=== PATIENT | female | born 1995 | race Caucasian/White ===

== ENCOUNTER 2019-03-21 19:54 | Emergency (ER) | payer SELFPAY ==
[2019-03-21 19:56] VITALS: BP 114/64; PULSE 90; RESP 16; TEMP 36.7; O2SAT 100; BMI 22.9
--- NOTE | 2019-03-21 20:08 | ED.DCSUM_ITS ---
History of Present Illness Chief Complaint: Ear Problem Informant: Patient Onset: Today Context: Gradual Onset Timing: Continuous Current Severity: Moderate Maximum Severity: Moderate Narrative: Patient presents to the emergency department with right ear pain. She states she feels like it is clogged. She states that she try to put hydrogen peroxide and it made the pain worse. She does have history of seasonal allergies. She denies any fevers or chills. She does describe fullness and change in hearing. She denies any recent trauma. She is otherwise been in her normal state of health. Prior similar symptoms: No Recent Illness/Hospitalization: No Past Medical History - Allergies and Home Meds Allergies/Adverse Reactions: Allergies amoxicillin Allergy (Verified 03/21/19 19:57) Hives Primary Care Physician: NOT,DEFINED [Primary Care Provider] - Prior records reviewed: Yes Past Medical History: None Surgical History: no surgical history Smoking Status: Former smoker - Quit 02/2015 Review of Systems General: Denies: Chills, Fever, Sweats Eyes: Denies: Visual changes - bilaterally, Diplopia ENT: Reports: Right ear pain. Denies: Rhinorrhea, Sore throat Cardiovascular: Denies: Chest pain, Palpitations Respiratory: Denies: Dyspnea, Cough, Dyspnea on exertion Gastrointestinal: Denies: Abdominal pain, Nausea, Vomiting, Diarrhea, Melena, Hematochezia Genitourinary: Denies: Dysuria, Hematuria, Frequency Musculoskeletal: Denies: Back pain, Extremity Pain Skin: Denies: Rash, Wounds Neurological: Denies: Headache, Weakness, Numbness Physical Exam Vital Signs/Narrative: Vital Signs Temp Pulse Resp BP Pulse Ox 03/21/19 19:56 98.0 F 90 16 114/64 100 Inital Vital Signs reviewed: Yes General: Well nourished, Well developed, No Acute Distress Head: Normocephalic, Atraumatic Eyes: Perrl, EOMI ENT: Moist mucous membranes, No rhinorrhea, - - The right TM is erythematous and bulging. There is distortion of landmarks. There is purulent behind it. There is no perforation. Neck: Supple, Nontender Cardiovascular: Regular rate, Regular rhythm, No murmurs Respiratory: No distress, CTA bilaterally, Chest nontender Abdomen: Soft, Nontender, Nondistended, Normal bowel sounds Back: Nontender, Normal Inspection Extremities: Nontender, No edema Skin: Normal color, No rash Neurological: Alert, Oriented x3, Cranial nerves II-XII grossly intact, Normal Strength, Normal Sensation Psychological: Normal affect, Normal Mood Diagnostic/Tx/Re-eval - Medical Decision Making The patient has evidence of an acute otitis media. There is no mastoid tenderness. There is no perforation. Given her history of seasonal allergies, she will be given a short prednisone burst. She will also be started on Omnicef. She is given her first dose here. She was counseled on concerning s ymptoms and reasons to return. She will be discharged home. Impression 1. Acute right otitis media without perforation ED Disposition - Plan for ED Patient: Instructions: OTITIS MEDIA, Abx Tx (Adult) Prescriptions: Prednisone [Deltasone] 40 mg PO DAILY #10 tab Prescription Printed Cefdinir [Omnicef [equiv]] 300 mg PO Q12H #14 cap Prescription Printed Referrals: NOT,DEFINED [Primary Care Provider] -
[2019-03-21] MEDS: predniSONE 20 MG Tablet 60 MG PO (20:15)
[2019-03-21] MEDS: Cefdinir 300 MG Capsule PO (20:35)
== END 2019-03-21 20:38 | disposition home or self-care (01) ==
LOC: ED 20:27
PROVIDERS: Emergency Provider Emergency Medicine; Family Provider Nurse Practitioner Family; PCP Nurse Practitioner Family
DX: H66.91 Otitis media, unspecified, right ear (principal); Z88.0 Allergy status to penicillin; Z87.891 Personal history of nicotine dependence; Z79.899 Other long term (current) drug therapy
CPT/HCPCS: 99283

== ENCOUNTER 2025-06-24 23:05 | Outpatient (CLI) | payer MEDICAID, SELFPAY ==
--- OUTSIDE RECORDS SUMMARY | 2025-06-24 23:15 | XMS RPT_ITS | CCD ---
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.Arnaldo SERNA Primary Care Provider CARIDAD GLYNN Attending Unavailable TRILL, ARNALDO C Primary Care Unavailable CARIDAD GLYNN Attending Unavailable TRIKRIS, ARNALDO C Primary Care Unavailable HAURY, ERIKA Attending Unavailable SELF Referring Unavailable TRILL, ARNALDO C Primary Care Unavailable HARAUL, ERIKA Referring Unavailable TRILL, ARNALDO C Primary Care Unavailable HAURY, ERIKA Referring Unavailable TRILL, ARNALDO C Primary Care Unavailable PLOTTS, CARIDAD Attending Unavailable HAURY, ERIKA Referring Unavailable TRILL, ARNALDO C Primary Care Unavailable CHIP FRENCH Attending Unavailable SELF Referring Unavailable TRILL, ARNALDO C Primary Care Unavailable PLOTTS, CARIDAD Attending Unavailable TRILL, ARNALDO C Primary Care Unavailable CHIP FRENCH Referring Unavailable TRILL, ARNALDO C Primary Care Unavailable TRILL, ARNALDO C Primary Care Unavailable CHIP FRENCH Attending Unavailable GABRIELE, CARIDAD Attending Unavailable TRILL, ARNALDO C Primary Care Unavailable Allergies Allergy Classification Reported Allergen(s) Allergy Type Date of Onset Reaction(s) Facility (10 sources) amoxicillin; Translations: [AMOXICILLIN] Drug Allergy 03-23-2011 Rash, Hives [facility] Other [place] [facility] Medications Current Medications Medication Drug Class(es) Dates Sig (Normalized) Sig (Original) ondansetron 4 mg oral tablet (8 sources) Serotonin-3 Receptor Antagonist Start: 01-19-2025 take 1 tablet by mouth every eight hours as needed for nausea ondansetron (ZOFRAN) 4 mg tablet Indications: Encounter for supervision of high risk in second trimester, antepartum (HCC) , Nausea and vomiting during (HCC) Take 1 tablet by mouth every 8 hours as needed for nausea/vomiting. 30 tablet 3 01/19/2025 Active pantoprazole 20 mg delayed release oral tablet (4 sources) Proton Pump Inhibitor Start: 02-11-2025 take 1 tablet by mouth once daily pantoprazole DR (PROTONIX) 20 mg tablet Take 1 tablet by mouth once daily. 30 tablet 1 02/11/2025 Active vit/iron fum/folic ac ( 1 + 1 ORAL) (8 sources) vit/iro n fum/folic ac ( 1 + 1 ORAL) Take by mouth. Active Completed/Discontinued Medications Medication Drug Class(es) Dates Sig (Normalized) Sig (Original) 21 day ethinyl estradiol 0.465494 mg/hr / etonogestrel 0.005 mg/hr vaginal system (1 source) Progestin, Estrogen Start: 09-01-2020 End: 01-19-2025 Etonogestrel-Ethin yl Estradiol (NUVARING) 0.12-0.015 mg/24 hr vaginal ring 1 Each as directed. INSERT ONE(1) RING VAGINALLY AND LEAVE IN PLACE FOR THREE WEEKS, THEN REMOVE FOR 1 WEEK. 3 Each 3 09/01/2020 01/19/2025 Discontinued famotidine 20 mg oral tablet (5 sources) Histamine-2 Receptor Antagonist Start: 01-19-2025 End: 02-11-2025 take 1 tablet by mouth twice daily famotidine (PEPCID) 20 mg tablet Indications: Encounter for supervision of high risk in second trimester, antepartum (HCC) Take 1 tablet by mouth two times a day. 60 tablet 5 01/19/2025 02/11/2025 Discontinued fluticasone propionate 0.05 mg/actuat metered dose nasal spray (1 source) Corticosteroid Start: 03-29-2021 End: 01-19-2025 take 1 spray(s) nasal route once daily fluticasone (FLONASE) 50 mcg/actuation nasal spray Indications: Environmental allergies Use 1 [place] in each nostril once daily. 1 Each 2 03/29/2021 01/19/2025 Discontinued meclizine hydrochloride 25 mg oral tablet (1 source) Antiemetic Start: 07-14-2020 End: 01-19-2025 take 1 tablet by mouth three times daily meclizine (ANTIVERT) 25 mg tab Indications: Intractable vomiting with nausea, unspecified vomiting type Take 1 tablet by mouth three times daily. 90 tablet 6 07/14/2020 01/19/2025 Discontinued melatonin 5 mg oral tablet (1 source) Start: 09-08-2020 End: 01-19-2025 melatonin 5 mg tablet 09/08/2020 01/19/2025 Discontinued OTC PRODUCT (1 source) End: 01-19-2025 OTC PRODUCT oral 01/19/2025 Discontinued Problems Active Problems Problem Classification Problem Date Documented Da te Episodic/Chronic Anxiety disorders (19 sources) Mixed anxiety and depressive disorder; Translations: [Other specified anxiety disorders] Onset: 04-18-2016 01-19-2025 Chronic Attention-deficit, conduct, and disruptive behavior disorders (9 sources) Attention deficit hyperactivity disorder; Translations: [Attention-deficit hyperactivity disorder, unspecified type] Onset: 01-19-2025 01-19-2025 Chronic Cancer of cervix (8 sources) Atypical squamous cells of undetermined significance on cervical Papanicolaou smear; Translations: [Atypical squamous cells of undetermined significance on cytologic smear of cervix (ASC-US)] Onset: 01-23-2025 01-23-2025 Episodic Conduction disorders (12 sources) Incomplete right bundle branch block; Translations: [Unspecified right bundle-branch block] Onset: 09-07-2016 01-19-2025 Chronic Diverticulosis and diverticulitis (8 sources) Diverticulosis of small intestine; Translations: [Diverticulosis of small intestine without perforation or abscess without bleeding] Onset: 06-21-2018 06-21-2018 Chronic Immunizations and screening for infectious disease (5 sources) Patient encounter status; Translations: [Encounter for screening for infections with a predominantly sexual mode of transmission] Onset: 01-19-2025 01-19-2025 Episodic Mood disorders (16 sources) Moderate recurrent major depression; Translations: [Major depressive disorder, recurrent, moderate] Onset: 04-18-2016 Resolved: 11-22-2016 07-14-2020 Chronic Other complications of (20 sources) High risk ; Translations: [Supervision of high risk , unspecified, second trimester] Onset: 09-25-2016 Resolved: 08-21-2017 01-19-2025 Episodic Other complications of (9 sources) Vomiting of , unspecified; Translations: [Unspecified vomiting of , unspecified as to episode of care or not applicable] Onset: 01-19-2025 01-19-2025 Episodic Other complications of (10 sources) Heartburn; Translations: [Other specified related conditions, second trimester] Onset: 01-19-2025 01-19-2025 Episodic Other complications of (9 sources) Maternal tobacco use; Translations: [Smoking (tobacco) complicating , second trimester] Onset: 01-19-2025 01-19-2025 Episodic Other complications of (9 sources) Late entry into care; Translations: [Supervision of with insufficient care, unspecified trimester] Onset: 01-19-2025 01-19-2025 Episodic Other complications of (9 sources) Rubella non-immune; Translations: [Supervision of other high risk pregnancies, unspecified trimester] Onset: 01-20-2025 01-20-2025 Episodic Other complications of (1 source) Other specified related conditions, third trimester; Translations: [Vaginal discharge during in third trimester (HCC)] Onset: 04-15-2025 Episodic Other disorders of stomach and duodenum (11 sources) Gastroparesis syndrome; Translations: [Gastroparesis] Onset: 01-19-2025 01-19-2025 Episodic Other female genital disorders (1 source) Other specified noninflammatory disorders of vagina; Translations: [Vaginal discharge during in third trimester (HCC)] Onset: 04-15-2025 Episodic Other gastrointestinal disorders (8 sources) Irritable bowel syndrome; Translations: [Irritable bowel syndrome without diarrhea] Onset: 08-21-2017 08-21-2017 Chronic Other lower respiratory disease (10 sources) Dyspnea; Translations: [Shortness of breath] Onset: 01-19-2025 01-19-2025 Episodic Other non-traumatic joint disorders (1 source) Pain in left hip; Translations: [Pain in left hip] Onset: 03-11-2018 Episodic Other screening for suspected conditions (not mental disorders or infectious disease) (1 source) Cancer cervix screening status; Translations: [Encounter for screening for malignant neoplasm of cervix] 01-19-2025 Episodic Residual codes; unclassified (1 source) Gestation period, 17 weeks; Translations: [17 weeks gestation of ] 01-19-2025 Episodic Residual codes; unclassified (10 sources) History of headache; Translations: [Personal history of other specified conditions] Onset: 01-19-2025 01-19-2025 Episodic Residual codes; unclassified (2 sources) Gestation period, 20 weeks; Translations: [20 weeks gestation of ] 02-11-2025 Episodic Residual codes; unclassified (2 sources) Gestation period, 24 weeks; Translations: [24 weeks gestation of ] 03-11-2025 Episodic Residual codes; unclassified (1 source) 34 weeks gestation of ; Translations: [34 weeks gestation of (HCC)] Onset: 05-20-2025 Episodic Residual codes; unclassified (1 source) 32 weeks gestation of ; Translations: [32 weeks gestation of (HCC)] Onset: 05-08-2025 Episodic Residual codes; unclassified (1 source) 29 weeks gestation of ; Translations: [29 weeks gestation of (HCC)] Onset: 04-15-2025 Episodic Residual codes; unclassified (1 source) 28 weeks gestation of ; Translations: [28 weeks gestation of (HCC)] Onset: 04-09-2025 Episodic Residual codes; unclassified (1 source) 24 weeks gestation of ; Translations: [24 weeks gestation of (HCC)] Onset: 03-11-2025 Episodic Unclassified (8 sources) [facility] Education - COMMON Onset: 01-19-2025 01-19-2025 Unclassified (8 sources) Education - [place] Onset: 01-19-2025 01-19-2025 Unclassified (1 source) Rubella non-immune status, antepartum ([facility]); Translations: [Rubella non-immune status, antepartum ([facility])] Onset: 01-21-2025 Unclassified (1 source) Care Onset: 04-22-2025 Past or Other Problems Problem Classification Problem Date Documented Da te Episodic/Chronic Abdominal pain (16 sources) Right lower quadrant pain; Translations: [Right lower quadrant pain] Onset: 03-07-2016 Resolved: 11-22-2016 11-22-2016 Episodic Cardiac and circulatory congenital anomalies (8 sources) Single umbilical artery; Translations: [Congenital absence and hypoplasia of umbilical artery] Onset: 02-27-2017 Resolved: 08-21-2017 08-21-2017 Chronic Nausea and vomiting (8 sources) Nausea and vomiting; Translations: [Nausea with vomiting, unspecified] Onset: 03-07-2016 Resolved: 11-22-2016 11-22-2016 Episodic Other complications of (1 source) Smoking (tobacco) complicating , second trimester; Translations: [Tobacco smoking complicating in second trimester ([facility])] Onset: 01-19-2025 Episodic Other complications of (1 source) Supervision of high risk , unspecified, third trimester; Translations: [Encounter for supervision of high risk in third trimester, antepartum ([facility])] Onset: 01-19-2025 Episodic Other complications of (1 source) Supervision of other high risk pregnancies, unspecified trimester; Translations: [Rubella non-immune status, antepartum ([facility])] Onset: 01-21-2025 Episodic Other complications of (1 source) Other specified related conditions, second trimester; Translations: [Heartburn during in second trimester ([facility])] Onset: 01-19-2025 Episodic Other complications of (1 source) Supervision of high risk , unspecified, second trimester; Translations: [Encounter for supervision of high risk in second trimester, antepartum ([facility])] Onset: 01-19-2025 Episodic Other connective tissue disease (8 sources) Abnormal posture; Translations: [Abnormal posture] Onset: 12-07-2017 12-07-2017 Episodic Other disorders of stomach and duodenum (1 source) Gastroparesis; Translations: [Gastroparesis] Onset: 01-19-2025 Episodic Other gastrointestinal disorders (8 sources) Diarrhea; Translations: [Diarrhea, unspecified] Onset: 03-07-2016 Resolved: 11-22-2016 11-22-2016 Episodic Other gastrointestinal disorders (1 source) Heartburn; Translations: [Heartburn during in second trimester ([facility])] Onset: 01-19-2025 Episodic Other lower respiratory disease (1 source) Shortness of breath; Translations: [Shortness of breath] Onset: 01-19-2025 Episodic Other and delivery including normal (2 sources) Encounter for supervision of normal , unspecified, unspecified trimester; Translations: [Encounter for supervision of normal , unspecified, first trimester] Onset: 01-19-2025 Episodic Residual codes; unclassified (8 sources) FH: Congenital heart disease; Translations: [Family history of other congenital malformations, deformations and chromosomal abnormalities] Onset: 09-07-2016 Resolved: 08-21-2017 08-21-2017 Episodic Residual codes; unclassified (1 source) Personal history of other specified conditions; Translations: [History of headache] Onset: 01-19-2025 Episodic Residual codes; unclassified (1 source) 20 weeks gestation of ; Translations: [20 weeks gestation of (HCC)] Onset: 02-11-2025 Episodic Screening and history of mental health and substance abuse codes (8 sources) H/O: depression; Translations: [Personal history of other mental and behavioral disorders] Onset: 09-07-2016 09-07-2016 Episodic Spondylosis; intervertebral disc disorders; other back problems (16 sources) Chronic low back pain; Translations: [Lumbago with sciatica, left side] Onset: 12-07-2017 12-07-2017 Episodic Results Test Name Value Interpretation Reference Range Facil guillerminachanel Franc 04-23-2025 [facility] Telephone ([id number]) SOL LEARY ([id number]) 1995 F Date Time Provider Department 04/23/25 RUTH SHOOK [id number] During your visit today, we recorded the following information about you: Ruth Shook RN 04/23/2025 9:08 AM Signed 3rd risk assessment form submitted 04/23/2025. 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 - vit/iron fum/folic ac ( 1 + 1 ORAL) Take by mouth. - ondansetron (ZOFRAN) 4 mg tablet Take 1 tablet by mouth every 8 hours as needed for nausea/vomiting. Problem List As Of Date 04/23/2025 Noted Resolved Right lower quadrant abdominal pain [R10.31] 03/07/2016 11/22/2016 Nausea and vomiting [R11.2] 03/07/2016 11/22/2016 Diarrhea [R19.7] 03/07/2016 11/22/2016 Lower abdominal pain [R10.30] 03/07/2016 11/22/2016 Anxiety [F41.9] 04/18/2016 Depression [F32.A] 04/18/2016 11/22/2016 History of depression [Z86.59] 09/07/2016 Incomplete right bundle branch block [I45.10] 09/07/2016 Family history of congenital heart defect [Z82.*09/07/2016 08/21/2017 Patient requested diagnostic testing [Z01.89] 09/07/2016 11/22/2016 Supervision of high risk in third tri*09/25/2016 08/21/2017 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] 02/27/2017 08/21/2017 IBS (irritable bowel syndrome) [K58.9] 08/21/2017 Chronic bilateral low back pain with bilateral *12/07/2017 Posture abnormality [R29.3] 12/07/2017 Lumbosacral spine instability [M53.2X7] 12/07/2017 Diverticulosis of small intestine without perfo*06/21/2018 Moderate episode of recurrent major depressive *07/14/2020 Shortness of breath [R06.02] 01/19/2025 Tobacco smoking complicating in secon*01/19/2025 Nausea and vomiting during (HCC) [O21*01/19/2025 Depression with anxiety [F41.8] 01/19/2025 Heartburn during in second trimester *01/19/2025 History of headache [Z87.898] 01/19/2025 Gastroparesis [K31.84] 01/19/2025 Attention deficit hyperactivity disorder (ADHD)*01/19/2025 Late care (HCC) [O09.30] 01/19/2025 Rubella non-immune status, antepartum (HCC) [Z3*01/20/2025 Atypical squamous cells of undetermined signifi*01/23/2025 Encounter Status:Closed by RUTH SHOOK on 04/23/25 Normal [facility] BACTERIAL VAGINOSIS NAATon 1 Lactobacillus crispatus+gasseri+je nsenii + Gardnerella vaginalis + Atopobium vaginae rRNA KIMBERLYN+probe Ql (Vag fld) Not detected Normal Not detected [facility] Comment on above: Order Comment: Speci men Type: BLOOD SPECIMEN Ordering Facility: [facility] Address: [address] [place] [address] Performed By: #### L [id number] #### [facility] CLIA [id number] [address] [place] [address] [place] JUDSON/TRICHOMONAS NAATon 1 C. glabrata RNA KIMBERLYN+probe Ql (Vag fld) Not detected Normal Not detected [facility] Comment on above: Order Comment: Speci men Type: BLOOD SPECIMEN Ordering Facility: [facility] Address: [address] [place] [address] Performed By: #### L [id number] #### [facility] CLIA [id number] [address] [place] [address] [place] Judson sp DNA KIMBERLYN+probe Ql (Vag fld) Not detected Normal Not detected [facility] Comment on above: Order Comment: Speci men Type: BLOOD SPECIMEN Ordering Facility: [facility] Address: [address] [place] [address] Result Comment: The Judson species group target includes C. albicans, C. tropicalis, C. parapsilosis, and C. dubliniensis. Performed By: #### L [id number] #### [facility] CLIA [id number] [address] [place] [address] [place] T. vaginalis DNA KIMBERLYN+probe Ql (Unsp spec) Not detected Normal Not detected [facility] Comment on above: Order Comment: Speci men Type: BLOOD SPECIMEN Ordering Facility: [facility] Address: [address] [place] [address] Performed By: #### L [id number] #### [facility] CLIA [id number] [address] [place] [address] [place] CBC panel Auto (Bld)on 04-09 Erythrocyte distribution width (RBC) [Ratio] 12.2 % Normal 11.5-15.0 [facility] Comment on above: Order Comment: Speci men Type: BLOOD SPECIMEN Ordering Facility: [facility] Address: [address] [place] [address] Performed By: #### L [id number] #### [facility] CLIA [id number] [address] [place] [address] [place] Hematocrit (Bld) [Volume fraction] 31.6 % Low 36.0-46.0 [facility] Comment on above: Order Comment: Speci men Type: BLOOD SPECIMEN Ordering Facility: [facility] Address: [address] [place] [address] Performed By: #### L [id number] #### [facility] CLIA [id number] [address] [place] [address] [place] Hemoglobin (Bld) [Mass/Vol] 11.1 g/dL Low 11.5-15.5 [facility] Comment on above: Order Comment: Speci men Type: BLOOD SPECIMEN Ordering Facility: [facility] Address: [address] [place] [address] Performed By: #### L [id number] #### [facility] CLIA [id number] [address] [place] [address] [place] MCH (RBC) [Entitic mass] 32.6 pg Normal 26.0-34.0 [facility] Comment on above: Order Comment: Speci men Type: BLOOD SPECIMEN Ordering Facility: [facility] Address: [address] [place] [address] Performed By: #### L [id number] #### [facility] CLIA [id number] [address] [place] [address] [place] MCHC (RBC) [Mass/Vol] 35.1 g/dL Normal 30.5-36.0 [facility] Comment on above: Order Comment: Speci men Type: BLOOD SPECIMEN Ordering Facility: [facility] Address: [address] [place] [address] Performed By: #### L [id number] #### [facility] CLIA [id number] [address] [place] [address] [place] MCV (RBC) [Entitic vol] 92.7 fL Normal 80.0-100.0 [facility] Comment on above: Order Comment: Speci men Type: BLOOD SPECIMEN Ordering Facility: [facility] Address: [address] [place] [address] Performed By: #### L [id number] #### [facility] CLIA [id number] [address] [place] [address] [place] Nucleated RBC (Bld) [#/Vol] 10*3/uL Normal <0.01 [facility] Comment on above: Order Comment: Speci men Type: BLOOD SPECIMEN Ordering Facility: [facility] Address: [address] [place] [address] Performed By: #### L [id number] #### [facility] CLIA [id number] [address] [place] [address] [place] Platelet mean volume (Bld) [Entitic vol] 9.0 fL Normal 9.0-12.7 [facility] Comment on above: Order Comment: Speci men Type: BLOOD SPECIMEN Ordering Facility: [facility] Address: [address] [place] [address] Performed By: #### L [id number] #### [facility] CLIA [id number] [address] [place] [address] [place] [facility] [place] Platelets (Bld) [#/Vol] 271 10*3/uL Normal 150-400 [facility] Comment on above: Order Comment: Speci men Type: BLOOD SPECIMEN Ordering Facility: [facility] Address: [address] [place] [address] Performed By: #### L [id number] #### [facility] CLIA [id number] [address] [place] [address] [place] RBC (Bld) [#/Vol] 3.41 10*6/uL Low 3.90-5.20 [facility] Comment on above: Order Comment: Speci men Type: BLOOD SPECIMEN Ordering Facility: [facility] Address: [address] [place] [address] Performed By: #### L [id number] #### [facility] CLIA [id number] [address] [place] [address] [place] WBC (Bld) [#/Vol] 9.30 10*3/uL Normal 3.70-11.00 [facility] Comment on above: Order Comment: Speci men Type: BLOOD SPECIMEN Ordering Facility: [facility] Address: [address] [place] [address] Performed By: #### L [id number] #### [facility] CLIA [id number] [address] [place] [address] [place] [id number] 04-09-2025 ECG01 Ventricular Rate : 8 6 BPM Atrial Rate : 86 BPM P-R Interval : 142 ms QRS Duration : 106 ms Q-T Interval : 376 ms QTC Calculation(Bazett) : 449 ms Calculated P [place] : 44 degrees Calculated R [place] : 49 degrees Calculated T [place] : 39 degrees NORMAL SINUS RHYTHM INCOMPLETE RIGHT BUNDLE BRANCH BLOCK BORDERLINE ECG Confirmed by MD MESFIN, QARAB ([id number]) on 04/13/2025 1:03:56 PM NAME : SOL LEARY PID : [id number] : 1995 Gender : Female Race : ORD : Procedure Date : Apr 09 2025 11:42:46 Edit Date : Apr 13 2025 13:07:35 Diagnosis: NORMAL SINUS RHYTHM INCOMPLETE RIGHT BUNDLE BRANCH BLOCK BORDERLINE ECG Confirmed by MD TOURE QARAB ([id number]) on 04/13/2025 1:03:56 PM Test Reason : Location : 636 : [facility] Overread By : MD TOURE QARAB Edited By : MD TOURE QARAB Referred By : CHIP FRENCH Acquired by : Carlos werner [facility] GESTATIONAL GLUCOSE SCREEN, 1-HOUR, 50 GRAM, NON-FASTINGon 04-09-2025 Glucose [Mass/Vol] 74 mg/dL Normal 74-134 [facility] Comment on above: Order Comment: Oleg pritchett Type: BLOOD SPECIMEN Ordering Facility: [facility] Address: [address] [place] [address] Result Comment: [facility] Congress of [employer]stetricians and [employer]nec[employer] (Sen/Osito) guidelines state a gestational diabetes mellitus positive screen is made, in women not previously diagnosed with overt diabetes, when the 1 hr plasma glucose level is equal to or above 140 mg/dL. [facility] Manager Of Development and Women's Health [place] recommends a 135 mg/dL cutoff. Performed By: #### 5 [id number] #### [facility] CLIA [id number] [address] [place] [address] [place] Reagin and Treponema pallidu m IgG and IgM [Interp]on 04-09-2025 T. pallidum IgG+IgM IA Ql (S) Non-Reactive Normal Nonreactive [facility] Comment on above: Order Comment: Oleg pritcehtt Type: BLOOD SPECIMEN Ordering Facility: [facility] Address: [address] [place] [address] Performed By: #### 7 [id number] #### [facility] CLIA [id number] [address] [place] [address] [place] Reagin+T pallidum IgG+IgM Se rPl-Impon 04-09-2025 Reagin and Treponema pallidum IgG and IgM [Interp] Cannot exclude recent Treponemal infection if specimen collected within 7-10 days after appearance of suspect lesions or 2-3 weeks after an exposure. Clinical correlation is required. [facility] Comment on above: Order Comment: Speci men Type: BLOOD SPECIMEN Ordering Facility: [facility] Address: [address] [place] [address] Performed By: #### 7 3752-8 #### [facility] CLIA [id number] [address] [place] [address] 03-12-2025 CNPN Telephone ([id number]) SOL LEARY ([id number]) 1995 F Date Time Provider Department 03/12/25 RUTH SHOOK [id number] During your visit today, we recorded the following information about you: Ruth Shook RN 03/12/2025 9:58 AM Signed 2nd risk assessment form submitted 03/12/2025. 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 - vit/iron fum/folic ac ( 1 + 1 ORAL) Take by mouth. - ondansetron (ZOFRAN) 4 mg tablet Take 1 tablet by mouth every 8 hours as needed for nausea/vomiting. Problem List As Of Date 03/12/2025 Noted Resolved Right lower quadrant abdominal pain [R10.31] 03/07/2016 11/22/2016 Nausea and vomiting [R11.2] 03/07/2016 11/22/2016 Diarrhea [R19.7] 03/07/2016 11/22/2016 Lower abdominal pain [R10.30] 03/07/2016 11/22/2016 Anxiety [F41.9] 04/18/2016 Depression [F32.A] 04/18/2016 11/22/2016 History of depression [Z86.59] 09/07/2016 Incomplete right bundle branch block [I45.10] 09/07/2016 Family history of congenital heart defect [Z82.*09/07/2016 08/21/2017 Patient requested diagnostic testing [Z01.89] 09/07/2016 11/22/2016 Supervision of high risk in third tri*09/25/2016 08/21/2017 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] 02/27/2017 08/21/2017 IBS (irritable bowel syndrome) [K58.9] 08/21/2017 Chronic bilateral low back pain with bilateral *12/07/2017 Posture abnormality [R29.3] 12/07/2017 Lumbosacral spine instability [M53.2X7] 12/07/2017 Diverticulosis of small intestine without perfo*06/21/2018 Moderate episode of recurrent major depressive *07/14/2020 Shortness of breath [R06.02] 01/19/2025 Tobacco smoking complicating in secon*01/19/2025 Encounter for supervision of high risk pregnanc*01/19/2025 Nausea and vomiting during (HCC) [O21*01/19/2025 Depression with anxiety [F41.8] 01/19/2025 Heartburn during in second trimester *01/19/2025 History of headache [Z87.898] 01/19/2025 Gastroparesis [K31.84] 01/19/2025 Attention deficit hyperactivity disorder (ADHD)*01/19/2025 Late care (HCC) [O09.30] 01/19/2025 Rubella non-immune status, antepartum (HCC) [O0*01/20/2025 Atypical squamous cells of undetermined signifi*01/23/2025 Encounter Status:Closed by RUTH SHOOK on 03/12/[address] [facility] 02-12-2025 CNPN Telephone (OBGYWM) SOL LEARY ([id number]) 1995 F Date Time Provider Department 02/12/25 ERIKA LUCAS During your visit today, we recorded the following information about you: Ce oDan RN 02/12/2025 11:43 AM Signed Erika Lucas APRN.KAREEM to [facility] Ob-Chemical Checker Pool 02/12/25 8:47 AM Please cancel colpo and plan for repeat pap Erika Lucas APRN.Candelaria Fraser MD to Erika Lucas APRN.NITRATOR OPERATOR 02/12/25 8:36 AM I filled it out in [facility] manuel and for HPV negative ASCUS with ASCUS history it says 1 year follow up. So I would say pap and HPV Erika Lucas APRN.NITRATOR OPERATOR to Candelaria Goss MD 02/11/25 11:56 AM Has upcoming colpo with you. ASCUS x2, HPV negative, but LSIL 2016. Should we cancel colpo and plan for repeat pap ? Erika Lucas APRN.Ce Petit RN 02/12/2025 11:43 AM Signed Left message for patient to call office. KATIE Jenkins Annalee, LPN 02/12/2025 12:32 PM Signed Patient notified Allergies As of Date: 02/12/2025 Noted Allergy Reaction AMOXICILLIN 03/23/2011 2 - Rash 4 - Hives Date Reviewed: 02/11/2025 Reviewed by: Amara Perea MA - Fully Assessed Reason for Visit: Appointment [186] Prescriptions as of 02/12/2025 - pantoprazole DR (PROTONIX) 20 mg tablet Take 1 tablet by mouth once daily. - vit/iron fum/folic ac ( 1 + 1 ORAL) Take by mouth. - ondansetron (ZOFRAN) 4 mg tablet Take 1 tablet by mouth every 8 hours as needed for nausea/vomiting. Problem List As Of Date 02/12/2025 Noted Resolved Right lower quadrant abdominal pain [R10.31] 03/07/2016 11/22/2016 Nausea and vomiting [R11.2] 03/07/2016 11/22/2016 Diarrhea [R19.7] 03/07/2016 11/22/2016 Lower abdominal pain [R10.30] 03/07/2016 11/22/2016 Anxiety [F41.9] 04/18/2016 Depression [F32.A] 04/18/2016 11/22/2016 History of depression [Z86.59] 09/07/2016 Incomplete right bundle branch block [I45.10] 09/07/2016 Family history of congenital heart defect [Z82.*09/07/2016 08/21/2017 Patient requested diagnostic testing [Z01.89] 09/07/2016 11/22/2016 Supervision of high risk in third tri*09/25/2016 08/21/2017 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] 02/27/2017 08/21/2017 IBS (irritable bowel syndrome) [K58.9] 08/21/2017 Chronic bilateral low back pain with bilateral *12/07/2017 Posture abnormality [R29.3] 12/07/2017 Lumbosacral spine instability [M53.2X7] 12/07/2017 Diverticulosis of small intestine without perfo*06/21/2018 Moderate episode of recurrent major depressive *07/14/2020 Shortness of breath [R06.02] 01/19/2025 Tobacco smoking complicating in secon*01/19/2025 Encounter for supervision of high risk pregnanc*01/19/2025 Nausea and vomiting during (HCC) [O21*01/19/2025 Depression with anxiety [F41.8] 01/19/2025 Heartburn during in second trimester *01/19/2025 History of headache [Z87.898] 01/19/2025 Gastroparesis [K31.84] 01/19/2025 Attention deficit hyperactivity disorder (ADHD)*01/19/2025 Late care (HCC) [O09.30] 01/19/2025 Rubella non-immune status, antepartum (HCC) [O0*01/20/2025 Atypical squamous cells of undetermined signifi*01/23/2025 Encounter Status:Closed by BARBARA BALDWIN on 02/12/25 [facility] Examination level ultrasound on 02-11-2025 Indication Standard anatomic survey Late care Impression The patient is referred for a standard anatomic survey. - Single, live, intrauterine . - biometry is consistent with the established gestational age. - No malformations were visualized on a complete standard anatomic survey. - The amniotic fluid volume is normal amount. - The placenta is anterior, fundal. - The Transabdominal cervical length measures 40 mm with no evidence of funneling or other dynamic changes. - Not all structural malformations can be detected by ultrasound examination. Recommendations Additional follow-up as clinically indicated. Maternal Assessment Height 158 cm Height (ft) 5 ft Height (in) 2 in Physical Exam Initial weight (lb) 120 lb Initial BMI 21.94 kg/m Maternal assessment other: 3 Para 2 REMOTE READ Method Transabdominal ultrasound examination. View: Adequate visualization Guan . Number of fetuses: 1 Dating GA by prior assessment 20 w + 4 d ROSELINE by prior assessment: 06/27/2025 Ultrasound examination on: 02/11/2025 GA by U/S based upon: AC, BPD, Femur, HC GA by U/S 20 w + 0 d ROSELINE by U/S: 07/01/2025 Assigned: based on stated ROSELINE, selected on 02/11/2025 Assigned GA 20 w + 4 d Assigned ROSELINE: 06/27/2025 General Evaluation Cardiac activity present. FHR 138 bpm. movements: present. Presentation: transverse head right Placenta: Placental site: anterior, fundal Umbilical cord: Cord vessels: 3 vessel cord Amniotic fluid: Amount of AF: normal amount. 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 6.8 mm CM 5.2 mm 52% Nicolaides Extremities / Bony Struc FL / HC 0.19 52% Hadlock Other Structures FHR 138 bpm Anatomy Cranium: normal Lateral ventricles: normal Choroid plexus: normal Midline falx: normal Cavum septi pellucidi: normal Cerebellum: normal Cisterna magna: normal Head / Neck Vermis: Normal but not required for a standard anatomy exam Neck: Normal but not required for a standard anatomy exam Nuchal fold: Normal but not required for a standard anatomy exam Lips: normal Profile: Normal but not required for a standard anatomy exam Nose: Normal but not required for a standard anatomy exam Face Maxilla: Normal but not required for a standard anatomy exam Mandible: Normal but not required for a standard anatomy exam Orbits: Normal but not required for a standard anatomy exam Lens: Normal but not required for a standard anatomy exam 4-chamber view: normal RVOT view: normal LVOT view: normal 3-vessel view: normal 0-tqefuz-odbvlms view: normal Heart / Thorax Situs: situs solitus (normal) Aortic arch view: Normal but not required for a standard anatomy exam SVC: Normal but not required for a standard anatomy exam IVC: Normal but not required for a standard anatomy exam Cardiac axis: normal Rt lung: Normal but not required for a standard anatomy exam Lt lung: Normal but not required for a standard anatomy exam Diaphragm: normal Cord insertion: normal Stomach: normal Kidneys: normal Bladder: normal Genitals: normal Abdomen Abdom. wall: normal Cervical spine: normal Thoracic spine: normal Lumbar spine: normal Sacral spine: normal Arms: normal Legs: normal Rt upper arm: normal Rt forearm: normal Rt hand: normal Rt fingers: normal Lt upper arm: normal Lt forearm: normal Lt hand: normal Lt fingers: normal Rt upper leg: normal Rt lower leg: normal Rt foot: normal Lt upper leg: normal Lt lower leg: normal Lt foot: normal sex: female Wants to know sex: yes Maternal Structures Uterus / Cervix Uterus: Visualized Cervix: Visualized Approach: Transabdominal Cervical length 40.0 mm Other: Patient declined transvaginal ultrasound for cervical length. Ovaries / Tubes / Adnexa Rt ovary: Visualized Lt ovary: Visualized Performed By: Meggan Chapa, TIBURCIO, RVT Read By: Kaycee [facility] M.D. MATERNAL MEDICINE [facility] Radiology Study observation (narrative) [facility] CNPKelsey 01-20-2025 CNPN Telephone ([id number]) SOL LEARY ([id number]) 1995 F Date Time Provider Department 01/20/25 RUTH SHOOK [id number] During your visit today, we recorded the following information about you: Ruth Shook RN 01/20/2025 11:36 AM Signed 1st risk assessment form submitted 01/20/2025. 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 - vit/iron fum/folic ac ( 1 + 1 ORAL) Take by mouth. - ondansetron (ZOFRAN) 4 mg tablet Take 1 tablet by mouth every 8 hours as needed for nausea/vomiting. Problem List As Of Date 01/20/2025 Noted Resolved Right lower quadrant abdominal pain [R10.31] 03/07/2016 11/22/2016 Nausea and vomiting [R11.2] 03/07/2016 11/22/2016 Diarrhea [R19.7] 03/07/2016 11/22/2016 Lower abdominal pain [R10.30] 03/07/2016 11/22/2016 Anxiety [F41.9] 04/18/2016 Depression [F32.A] 04/18/2016 11/22/2016 History of depression [Z86.59] 09/07/2016 Incomplete right bundle branch block [I45.10] 09/07/2016 Family history of congenital heart defect [Z82.*09/07/2016 08/21/2017 Patient requested diagnostic testing [Z01.89] 09/07/2016 11/22/2016 Supervision of high risk in third tri*09/25/2016 08/21/2017 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] 02/27/2017 08/21/2017 IBS (irritable bowel syndrome) [K58.9] 08/21/2017 Chronic bilateral low back pain with bilateral *12/07/2017 Posture abnormality [R29.3] 12/07/2017 Lumbosacral spine instability [M53.2X7] 12/07/2017 Diverticulosis of small intestine without perfo*06/21/2018 Moderate episode of recurrent major depressive *07/14/2020 Shortness of breath [R06.02] 01/19/2025 Tobacco smoking complicating in secon*01/19/2025 Encounter for supervision of high risk pregnanc*01/19/2025 Nausea and vomiting during (HCC) [O21*01/19/2025 Depression with anxiety [F41.8] 01/19/2025 Heartburn during in second trimester *01/19/2025 History of headache [Z87.898] 01/19/2025 Gastroparesis [K31.84] 01/19/2025 Attention deficit hyperactivity disorder (ADHD)*01/19/2025 Late care (HCC) [O09.30] 01/19/2025 Encounter Status:Closed by RUTH SHOOK on 01/20/25 [facility] Bacteria Ur Culton Bacteria identified Cx Nom (U) ORGANISM ID: 1 <10,000 CFU/ml Normal urogenital gurvinder [facility] Comment on above: Performed By: #### L [id number] #### [facility] CLIA [id number] [address] [place] [address] [place] C. trachomatis+N. gonorrhoea e DNA KIMBERLYN+probe Ql (Unsp spec)on 01-19-2025 C. trachomatis rRNA KIMBERLYN+probe Ql (Unsp spec) Not detected Normal Not detected [facility] Comment on above: Order Comment: Speci men Type: BLOOD SPECIMEN Ordering Facility: [facility] Address: [address] [place] [address] Performed By: #### 5 7021-8 #### [facility] CLIA [id number] [address] [place] [address] N. gonorrhoeae rRNA KIMBERLYN+probe Ql (Unsp spec) Not detected Normal Not detected [facility] Comment on above: Order Comment: Speci men Type: BLOOD SPECIMEN Ordering Facility: [facility] Address: [address] [place] [address] Performed By: #### 5 7021-8 #### [id number] [address] [place] [address] [place] CBC W Auto Differential pane l (Bld)on 01-19-2025 Basophils (Bld) [#/Vol] 0.04 10*3/uL Normal <0.11 [facility] Comment on above: Order Comment: Speci men Type: BLOOD SPECIMEN Ordering Facility: [facility] Address: [address] [place] [address] Performed By: #### 5 7021-8 #### [facility] [id number] [address] [place] [address] [place] Basophils/100 WBC (Bld) 0.5 % [facility] Comment on above: Order Comment: Speci men Type: BLOOD SPECIMEN Ordering Facility: [facility] Address: [address] [place] [address] Performed By: #### 5 7021-8 #### [facility] CLIA [id number] [address] [place] [address] [place] Differential cell count method Nom (Bld) Auto [facility] Comment on above: Order Comment: Speci men Type: BLOOD SPECIMEN Ordering Facility: [facility] Address: [address] [place] [address] Performed By: #### 5 7021-8 #### [facility] CLIA [id number] [address] [place] [address] [place] Eosinophils (Bld) [#/Vol] 0.11 10*3/uL Normal <0.46 [facility] Comment on above: Order Comment: Speci men Type: BLOOD SPECIMEN Ordering Facility: [facility] Address: [address] [place] [address] Performed By: #### 5 7021-8 #### [facility] CLIA [id number] [address] [place] [address] [place] Eosinophils/100 WBC (Bld) 1.3 % [facility] Comment on above: Order Comment: Speci men Type: BLOOD SPECIMEN Ordering Facility: [facility] Address: [address] [place] [address] Performed By: #### 5 7021-8 #### [facility] CLIA [id number] [address] [place] [address] [place] Erythrocyte distribution width (RBC) [Ratio] 12.6 % Normal 11.5-15.0 [facility] Comment on above: Order Comment: Speci men Type: BLOOD SPECIMEN Ordering Facility: [facility] Address: [address] [place] [address] Performed By: #### 5 7021-8 #### [facility] CLIA [id number] [address] [place] [address] [place] Hematocrit (Bld) [Volume fraction] 32.7 % Low 36.0-46.0 [facility] Comment on above: Order Comment: Speci men Type: BLOOD SPECIMEN Ordering Facility: [facility] Address: [address] [place] [address] Performed By: #### 5 7021-8 #### [facility] CLIA [id number] [address] [place] [address] [place] Hemoglobin (Bld) [Mass/Vol] 11.7 g/dL Normal 11.5-15.5 [facility] Comment on above: Order Comment: Speci men Type: BLOOD SPECIMEN Ordering Facility: [facility] Address: [address] [place] [address] Performed By: #### 5 7021-8 #### [facility] CLIA [id number] [address] [place] [address] [place] Immature granulocytes (Bld) [#/Vol] 0.04 10*3/uL Normal <0.10 [facility] Comment on above: Order Comment: Speci men Type: BLOOD SPECIMEN Ordering Facility: [facility] Address: [address] [place] [address] Performed By: #### 5 7021-8 #### [facility] CLIA [id number] [address] [place] [address] [place] Immature granulocytes/100 WBC (Bld) 0.5 % Normal [facility] Comment on above: Order Comment: Speci men Type: BLOOD SPECIMEN Ordering Facility: [facility] Address: [address] [place] [address] Performed By: #### 5 7021-8 #### [facility] CLIA [id number] [address] [place] [address] [place] Lymphocytes (Bld) [#/Vol] 1.74 10*3/uL Normal 1.00-4.00 [facility] Comment on above: Order Comment: Speci men Type: BLOOD SPECIMEN Ordering Facility: [facility] Address: [address] [place] [address] Performed By: #### 5 7021-8 #### [facility] CLIA [id number] [address] [place] [address] [place] Lymphocytes/100 WBC (Bld) 20.9 % [facility] Comment on above: Order Comment: Speci men Type: BLOOD SPECIMEN Ordering Facility: [facility] Address: [address] [place] [address] Performed By: #### 5 7021-8 #### [facility] CLIA [id number] [address] [place] [address] [place] MCH (RBC) [Entitic mass] 32.1 pg Normal 26.0-34.0 [facility] Comment on above: Order Comment: Speci men Type: BLOOD SPECIMEN Ordering Facility: [facility] Address: [address] [place] [address] Performed By: #### 5 7021-8 #### [facility] [id number] [address] [place] [address] [place] MCHC (RBC) [Mass/Vol] 35.8 g/dL Normal 30.5-36.0 [facility] Comment on above: Order Comment: Speci men Type: BLOOD SPECIMEN Ordering Facility: [facility] Address: [address] [place] [address] Performed By: #### 5 7021-8 #### [facility] [id number] [address] [place] [address] [place] MCV (RBC) [Entitic vol] 89.6 fL Normal 80.0-100.0 [facility] Comment on above: Order Comment: Speci men Type: BLOOD SPECIMEN Ordering Facility: [facility] Address: [address] [place] [address] Performed By: #### 5 7021-8 #### [facility] [id number] [address] [place] [address] [place] Monocytes (Bld) [#/Vol] 0.53 10*3/uL Normal <0.87 [facility] Comment on above: Order Comment: Speci men Type: BLOOD SPECIMEN Ordering Facility: [facility] Address: [address] [place] [address] Performed By: #### 5 7021-8 #### [facility] CLIA [id number] [address] [place] [address] [place] Monocytes/100 WBC (Bld) 6.4 % Normal [facility] Comment on above: Order Comment: Speci men Type: BLOOD SPECIMEN Ordering Facility: [facility] Address: [address] [place] [address] Performed By: #### 5 7021-8 #### [facility] CLIA [id number] [address] [place] [address] [place] Neutrophils (Bld) [#/Vol] 5.88 10*3/uL Normal 1.45-7.50 [facility] Comment on above: Order Comment: Speci men Type: BLOOD SPECIMEN Ordering Facility: [facility] Address: [address] [place] [address] Performed By: #### 5 7021-8 #### [facility] CLIA [id number] [address] [place] [address] [place] Neutrophils/100 WBC (Bld) 70.4 % Normal [facility] Comment on above: Order Comment: Speci men Type: BLOOD SPECIMEN Ordering Facility: [facility] Address: [address] [place] [address] Performed By: #### 5 7021-8 #### [facility] CLIA [id number] [address] [place] [address] [place] Nucleated RBC (Bld) [#/Vol] 10*3/uL Normal <0.01 [facility] Comment on above: Order Comment: Speci men Type: BLOOD SPECIMEN Ordering Facility: [facility] Address: [address] [place] [address], [place] [address] Performed By: #### 5 7021-8 #### [facility] CLIA [id number] [address] [place] [address] [place] Nucleated RBC/100 WBC (Bld) [Ratio] 0.0 /100 WBC Normal [facility] Comment on above: Order Comment: Speci men Type: BLOOD SPECIMEN Ordering Facility: [facility] Address: [address] [place] [address] Performed By: #### 5 7021-8 #### [facility] CLIA [id number] [address] [place] [address] [place] Platelet mean volume (Bld) [Entitic vol] 9.1 fL Normal 9.0-12.7 [facility] Comment on above: Order Comment: Speci men Type: BLOOD SPECIMEN Ordering Facility: [facility] Address: [address] [place] [address] Performed By: #### 5 7021-8 #### [facility] CLIA [id number] [address] [place] [address] [place] Platelets (Bld) [#/Vol] 258 10*3/uL Normal 150-400 [facility] Comment on above: Order Comment: Speci men Type: BLOOD SPECIMEN Ordering Facility: [facility] Address: [address] [place] [address] Performed By: #### 5 7021-8 #### [facility] CLIA [id number] [address] [place] [address] [place] RBC (Bld) [#/Vol] 3.65 10*6/uL Low 3.90-5.20 [facility] Comment on above: Order Comment: Speci men Type: BLOOD SPECIMEN Ordering Facility: [facility] Address: [address] [place] [address] Performed By: #### 5 7021-8 #### [facility] CLIA [id number] [address] [place] [address] [place] WBC (Bld) [#/Vol] 8.34 10*3/uL Normal 3.70-11.00 [facility] Comment on above: Order Comment: Speci men Type: BLOOD SPECIMEN Ordering Facility: [facility] Address: [address] [place] [address] Performed By: #### 5 7021-8 #### [facility] CLIA [id number] [address] [place] [address] [place] Comprehensive metabolic 2000 panelon 01-19-2025 Albumin [Mass/Vol] 3.9 g/dL Normal 3.9-4.9 [facility] Comment on above: Order Comment: Speci men Type: BLOOD SPECIMEN Ordering Facility: [facility] Address: [address] [place] [address] Performed By: #### 2 4323-8 #### [facility] CLIA [id number] [address] [place] [address] [place] [facility] CLIA [id number] [address] [place] [address] [place] ALP [Catalytic activity/Vol] 48 U/L Normal 34-123 [facility] Comment on above: Order Comment: Speci men Type: BLOOD SPECIMEN Ordering Facility: [facility] Address: [address] [place] [address] Performed By: #### 2 4323-8 #### [facility] CLIA [id number] [address] [place] [address] [place] [place] [facility] CLIA [id number] [address] [place] [address] [place] ALT [Catalytic activity/Vol] 6 U/L Low 7-38 [facility] Comment on above: Order Comment: Speci men Type: BLOOD SPECIMEN Ordering Facility: [facility] Address: [address] [place] [address] Performed By: #### 2 4323-8 #### [facility] CLIA [id number] [address] [place] [address] [place] [facility] CLIA [id number] [address] [place] [address] [place] Anion gap [Moles/Vol] 13 mmol/L Normal 8-15 [facility] Comment on above: Order Comment: Speci men Type: BLOOD SPECIMEN Ordering Facility: [facility] Address: [address] [id number] Performed By: #### 2 4323-8 #### [facility] CLIA [id number] [address] [place] [address] [place] [facility] CLIA [id number] [address] [place] [address] [place] AST [Catalytic activity/Vol] 10 U/L Low 13-35 [facility] Comment on above: Order Comment: Speci men Type: BLOOD SPECIMEN Ordering Facility: [facility] Address: [address] [id number] Performed By: #### 2 4323-8 #### [facility] CLIA [id number] [address] [place] [address] [place] [facility] CLIA [id number] [address] [place] [address] [place] Bilirubin [Mass/Vol] 0.2 mg/dL Normal 0.2-1.[address] [facility] Comment on above: Order Comment: Speci men Type: BLOOD SPECIMEN Ordering Facility: [facility] Address: [address] [id number] Performed By: #### 2 4323-8 #### [facility] CLIA [id number] [address] [place] [address] [place] [facility] CLIA [id number] [address] [place], [place] [address] [place] Calcium [Mass/Vol] 9.0 mg/dL Normal 8.5-10.2 [facility] Comment on above: Order Comment: Speci men Type: BLOOD SPECIMEN Ordering Facility: [facility] Address: [address] [place] [address] Performed By: #### 2 4323-8 #### [facility] CLIA [id number] [address] [place] [address] [place] [facility] CLIA [id number] [address] [place] [address] [place] Chloride [Moles/Vol] 101 mmol/L Normal 98-[address] [facility] Comment on above: Order Comment: Speci men Type: BLOOD SPECIMEN Ordering Facility: [facility] Address: [address] [place] [address] Performed By: #### 2 4323-8 #### [facility] CLIA [id number] [address] [place] [address] [place] [facility] CLIA [id number] [address] [place] [address] [place] CO2 [Moles/Vol] 21 mmol/L Low 22-30 [facility] Comment on above: Order Comment: Speci men Type: BLOOD SPECIMEN Ordering Facility: [facility] Address: [address] [place] [address] Performed By: #### 2 4323-8 #### [facility] CLIA [id number] [address] [place] [address] [place] [facility] CLIA [id number] [address] [place] [address] [place] Creatinine [Mass/Vol] 0.51 mg/dL Low 0.58-0.96 [facility] Comment on above: Order Comment: Speci men Type: BLOOD SPECIMEN Ordering Facility: [facility] Address: [address] [place] [address] Performed By: #### 2 4323-8 #### [facility] CLIA [id number] [address] [place] [address] [place] [facility] CLIA [id number] [address] [place] [address] [place] Creatinine and Glomerular filtration rate.predicted panel (S/P/Bld) 129 mL/min/1.73m??? Normal >=60 [facility] Comment on above: Order Comment: Oleg pritchett Type: BLOOD SPECIMEN Ordering Facility: [facility] Address: [address] [place] [address] Result Comment: Brigette mated Glomerular Filtration Rate (eGFR) is calculated using the 2020 CKD-EPI creatinine equation. This equation utilizes serum creatinine, sex, and age as parameters. The creatinine assay has traceable calibration to isotope dilution-mass spectrometry. Refer to KDIGO guidelines for clinical interpretation. In patients with unstable renal function, e.g. those with acute kidney injury, the eGFR may not accurately reflect actual GFR. Performed By: #### 2 4323-8 #### [facility] CLIA [id number] [address] [place] [address] [place] [facility] CLIA [id number] [address] [place] [address] [place] Glucose [Mass/Vol] 92 mg/dL Normal 74-99 [facility] Comment on above: Order Comment: Oleg pritchett Type: BLOOD SPECIMEN Ordering Facility: [facility] Address: [address] [place] [address] Result Comment: The [place] Diabetes Association (ADA) provides guidance for cutoff values for fasting glucose and random glucose. The ADA defines fasting as no caloric intake for at least 8 hours. Fasting plasma glucose results between 100 to 125 mg/dL indicate increased risk for diabetes (prediabetes). Fasting plasma glucose results greater than or equal to 126 mg/dL meet the criteria for diagnosis of diabetes. In the absence of unequivocal hyperglycemia, results should be confirmed by repeat testing. In a patient with classic symptoms of hyperglycemia or hyperglycemic crisis, random plasma glucose results greater than or equal to 200 mg/dL meet the criteria for diagnosis of diabetes. Reference: Standards of Medical Care in Diabetes 2016, [place] Diabetes Association. Diabetes Care. 2016.39(Suppl 1). Performed By: #### 2 4323-8 #### [facility] CLIA [id number] [address] [place] [address] [place] [facility] CLIA [id number] [address] [place] [address] [place] Potassium [Moles/Vol] 4.0 mmol/L Normal 3.7-5.1 [facility] Comment on above: Order Comment: Speci men Type: BLOOD SPECIMEN Ordering Facility: [facility] Address: [address] [place] [address] Performed By: #### 2 4323-8 #### [facility] CLIA [id number] [address] [place] [address] [place] [facility] CLIA [id number] [address] [place] [address] [place] Protein [Mass/Vol] 6.3 g/dL Normal 6.3-8.0 [facility] Comment on above: Order Comment: Speci men Type: BLOOD SPECIMEN Ordering Facility: [facility] Address: [address] [place] [address] Performed By: #### 2 4323-8 #### [facility] CLIA [id number] [address] [place] [address] [place] [facility] CLIA [id number] [address] [place] [address] [place] Sodium [Moles/Vol] 135 mmol/L Low 136-144 [facility] Comment on above: Order Comment: Speci men Type: BLOOD SPECIMEN Ordering Facility: [facility] Address: [address] [place] [address] Performed By: #### 2 4323-8 #### [facility] CLIA [id number] [address] [place] [address] [place] [facility] CLIA [id number] [address] [place] [address] [place] Urea nitrogen [Mass/Vol] 9 mg/dL Normal 7-21 [facility] Comment on above: Order Comment: Speci men Type: BLOOD SPECIMEN Ordering Facility: [facility] Address: [address] [place] [address] Performed By: #### 2 4323-8 #### [facility] CLIA [id number] [address] [place] [address] [place] [facility] CLIA [id number] [address] [place] [address] [place] HBV surface Ag Ser Qlon 07-0 HBV surface Ag Ql (S) Negative Normal Negative [facility] Comment on above: Order Comment: Speci men Type: BLOOD SPECIMEN Ordering Facility: [facility] Address: [address] [place] [address] Performed By: #### 5 7021-8 #### [facility] CLIA [id number] [address] [place] [address] [place] HCV Ab Ser Qlon 01-19-2025 HCV Ab Ql (S) Negative Normal Negative [facility] Comment on above: Order Comment: Speci men Type: BLOOD SPECIMEN Ordering Facility: [facility] Address: [address] [place] [address] Result Comment: The result suggests no evidence of infection with Hepatitis C virus. Should recent infection be suspected, repeat testing may be considered 4-6 weeks after this draw. Performed By: #### L [id number] #### [facility] CLIA [id number] [address] [place] [address] [place] HGB ELECTROPHORESIS FOR EVAL (LAB ORDER)on 01-19-2025 Hemoglobin A (Bld) [Mass fraction] 97.4 % Normal 96.2-98.0 [facility] Comment on above: Order Comment: Speci men Type: BLOOD SPECIMEN Ordering Facility: [facility] Address: [address] [place] [address] Performed By: #### L [id number] #### [facility] CLIA [id number] [address] [place] [address] [place] Hemoglobin A2 (Bld) [Mass fraction] 2.6 % Normal 2.0-3.1 [facility] Comment on above: Order Comment: Speci men Type: BLOOD SPECIMEN Ordering Facility: [facility] Address: [address] [place] [address] Performed By: #### L [id number] #### [facility] CLIA [id number] [address] [place] [address] [place] Hemoglobin Unsp Elph (Bld) [Mass fraction] No abnormal hemoglobin identified. Normal No abnormal hemoglobin identified. [facility] Comment on above: Order Comment: Speci men Type: BLOOD SPECIMEN Ordering Facility: [facility] Address: [address] [place] [address] Performed By: #### L [id number] #### [facility] CLIA [id number] [address] [place] [address] [place] HGB EVALUATION CASCADE INTER Eamon 01-19-2025 Hemoglobin pattern (Bld) [Interp] Reviewed by Milagro Rowland M.D., Ph.D Normal [facility] Comment on above: Order Comment: Speci men Type: BLOOD SPECIMEN Ordering Facility: [facility] Address: [address] [place] [address] Performed By: #### L [id number] #### [facility] CLIA [id number] [address] [place] [address] [place] INTERPRETATION (HGB EVAL) Normal [facility] Comment on above: Order Comment: Speci men Type: BLOOD SPECIMEN Ordering Facility: [facility] Address: [address] [place] [address] Result Comment: Hemo globins were analyzed by capillary electrophoresis and CBC red cell parameters were reviewed. No abnormal hemoglobin is identified. There is a normal hemoglobin capillary electrophoresis pattern. Performed By: #### L [id number] #### [facility] CLIA [id number] [address] [place], [place] [address] [place] [address] [place] HIGH RISK HUMAN PAPILLOMA PORSCHE (HPV), PCR FOR DETECTION AND GENOTYPINGon 01-19-2025 HPV 16 Ag Ql (Unsp spec) Not detected Normal Not detected [facility] Comment on above: Order Comment: Speci men Type: BLOOD SPECIMEN Ordering Facility: [facility] Address: [address] [place] [address] Performed By: #### 5 7021-8 #### [facility] CLIA [id number] [address] [place] [address] [place] HPV 18 Ag Ql (Unsp spec) Not detected Normal Not detected [facility] Comment on above: Order Comment: Speci men Type: BLOOD SPECIMEN Ordering Facility: [facility] Address: [address] [place] [address] Performed By: #### 5 7021-8 #### [facility] CLIA [id number] [address] [place] [address] [place] HPV 31+33+35+39+45+51+52 +56+58+59+66+68 DNA KIMBERLYN+probe Ql (Cvx) Not detected Normal Not detected [facility] Comment on above: Order Comment: Speci men Type: BLOOD SPECIMEN Ordering Facility: [facility] Address: [address] [place] [address] Result Comment: High Risk HPV Other Type includes HPV types 31, 33, 35, 39, 45, 51, 52, 56, 58, 59, 66 and 68. Performed By: #### 5 7021-8 #### [facility] CLIA [id number] [address] [place] [address] [place] HIV 1+2 Ab IA Qlon HIV 1 and 2 Ab IA.rapid Nom (S/P/Bld) Normal [facility] Comment on above: Order Comment: Speci men Type: BLOOD SPECIMEN Ordering Facility: [facility] Address: [address] [place] [address] Result Comment: Test not indicated. Performed By: #### 5 7021-8 #### [facility] CLIA [id number] [address] [place] [address] [place] HIV 1+2 Ab+HIV1 p24 Ag IA Ql Non-Reactive Normal Nonreactive [facility] Comment on above: Order Comment: Speci men Type: BLOOD SPECIMEN Ordering Facility: [facility] Address: [address] [place] [address] Performed By: #### 5 7021-8 #### [facility] CLIA [id number] [address] [place] [address] [place] HIV immunoassay testing algorithm interpretation (S/P/Bld) [Interp] Normal [facility] Comment on above: Order Comment: Speci men Type: BLOOD SPECIMEN Ordering Facility: [facility] Address: [address] [place] [address] Result Comment: No e vidence of HIV-1 or HIV-2 infection. Should recent infection be suspected, repeat testing may be considered 2-3 weeks after this draw. [place] Rev. Code 3701.243(E): This information has been disclosed to you from confidential records protected from disclosure by state law. You shall make no further disclosure of this information without the specific, written, and informed release of the individual to whom it pertains or as otherwise permitted by state law. A general authorization for the release of medical or other information is not sufficient for the purpose of the release of HIV test results or diagnoses. Performed By: #### 5 7021-8 #### [facility] CLIA [id number] [address] [place] [address] [place] HbA1c (Bld)on 01-19-2025 Average glucose Estimated from glycated hemoglobin (Bld) [Mass/Vol] 91 mg/dL Normal [facility] Comment on above: Order Comment: Speci men Type: BLOOD SPECIMEN Ordering Facility: [facility] Address: [address] [place] [address] Result Comment: eAG: (Estimated average glucose) is a calculated value from HgbA1c and is school admissions representative of the average blood glucose level in the last 2-3 month period. Performed By: #### 5 5454-3 #### [facility] CLIA [id number] [address] [place] [address] [place] HbA1c (Bld) [Mass fraction] 4.8 % Normal 4.3-5.6 [facility] Comment on above: Order Comment: Vikkii men Type: BLOOD SPECIMEN Ordering Facility: [facility] Address: [address] [place] [address] Result Comment: [place] Diabetes Association guidelines indicate that patients with HgbA1c in the range 5.7-6.4% are at increased risk for development of diabetes, and intervention by lifestyle modification may be beneficial. HgbA1c greater or equal to 6.5% is considered diagnostic of diabetes. Performed By: #### 5 5454-3 #### [facility] CLIA [id number] [address] [place] [address] [place] PAP TESTon 01-19-2025 ADEQUACY Normal [facility] Comment on above: Order Comment: Speci men Type: FLUID SPECIMEN Ordering Facility: [facility] Address: [address] [place] [address] Result Comment: Sati sfactory for interpretation. Transformation zone present Performed By: #### L [id number] #### [facility] CLIA [id number] [address] [place] [address] [place] CASE REPORT Normal [facility] Comment on above: Order Comment: Vikkii men Type: FLUID SPECIMEN Ordering Facility: [facility] Address: [address] [place] [address] Result Comment: Gyne cologic Cytology Report Case: [id number] Authorizing Provider: Erika Lucas APRN.NITRATOR OPERATOR Collected: 01/19/2025 11:45 AM Ordering Location: OB/Gynecology Received: 01/19/2025 05:15 PM First Screen: Sharla Lockhart, [place], ASCP Pathologist: Tracy Brady MD Specimen: Pap Test, ThinPrep, Cervix Performed By: #### L [id number] #### [facility] CLIA [id number] [address] [place] [address] [place] CLINICAL HISTORY, CYTOLOGY, MEDIEVAL ENGLISH LITERATURE PROFESSOR Normal [facility] Comment on above: Order Comment: Speci men Type: FLUID SPECIMEN Ordering Facility: [facility] Address: [address] [place] [address] Result Comment: Preg nant (Indicate Weeks) Previous ASCUS 17 Performed By: #### L [id number] #### [facility] CLIA [id number] [address] [place] [address] [place] [facility] Normal [facility] Comment on above: Order Comment: Speci men Type: FLUID SPECIMEN Ordering Facility: [facility] Address: [address] [place] [address] Result Comment: Tech nical component, relief map modeler screening performed at: [facility], [address] [place] [address] CLIA: [id number] Diagnostic interpretation performed at: [facility], [address] [place] [address] CLIA# [id number] Filling Hauler: Fermin Castellanos MD Performed By: #### L [id number] #### [facility] CLIA [id number] [address] [place] [address] [place] [facility] INTERPRETATION, CYTOLOGY, MEDIEVAL ENGLISH LITERATURE PROFESSOR Abnormal [facility] Comment on above: Order Comment: Speci men Type: FLUID SPECIMEN Ordering Facility: [facility] Address: [address] [place] [address] Result Comment: Atyp ical squamous cells of undetermined significance (ASC-US). at 1108 EDT Performed By: #### L [id number] #### [facility] CLIA [id number] [address] [place], [place] [address] [place] LMP 09/20/2024 Normal [facility] Comment on above: Order Comment: Speci men Type: FLUID SPECIMEN Ordering Facility: [facility] Address: [address] [place] [address] Performed By: #### L [id number] #### [facility] CLIA [id number] [address] [place] [address] [place] PAP DISCLAIMER COMMENT The Pap Smear is a screening test for cervical cancer. False negative results occur with all screening tests, emphasizing the need for rescreening at recommended intervals, and clinical correlation. Normal [facility] Comment on above: Order Comment: Speci men Type: FLUID SPECIMEN Ordering Facility: [facility] Address: [address] [place] [address] Performed By: #### L [id number] #### [facility] CLIA [id number] [address] [place] [address] [place] PAP GENERAL CATEGORIZATION Epithelial Cell Abnormality Normal [facility] Comment on above: Order Comment: Speci men Type: FLUID SPECIMEN Ordering Facility: [facility] Address: [address] [place] [address] Performed By: #### L [id number] #### [facility] CLIA [id number] [address] [place], [place] [address] [place] PAP LITHOGRAPH PRINTER COMMENT This specimen has been analyzed by the FDA-approved [employer] System, which uses digital imaging and an enhanced artificial intelligence image analysis algorithm to identify kramer of interest on the microscopic slide, to assist the hearing screener and pathologist in evaluating cells on ThinPrep Pap tests. Following analysis, kramer of interest on the microscopic slide selected by the algorithm are reviewed by a hearing screener. If a sample requires hierarchical review, the pathologist will review the same kramer of interest selected by the algorithm prior to final interpretation. Normal [facility] Comment on above: Order Comment: Speci men Type: FLUID SPECIMEN Ordering Facility: [facility] Address: [address] [place] [address] Performed By: #### L [id number] #### [facility] CLIA [id number] [address] [place] [address] [place] RBC PARAMETERS FOR HB IDon 0 01-19-2025 Erythrocyte distribution width (RBC) [Ratio] 13.0 % Normal 11.5-15.0 [facility] Comment on above: Order Comment: Speci men Type: BLOOD SPECIMEN Ordering Facility: [facility] Address: [address] [place] [address] Performed By: #### L [id number] #### [facility] CLIA [id number] [address] [place] [address] [place] Hematocrit (Bld) [Volume fraction] 33.7 % Low 36.0-46.0 [facility] Comment on above: Order Comment: Speci men Type: BLOOD SPECIMEN Ordering Facility: [facility] Address: [address] [place] [address] Performed By: #### L [id number] #### [facility] CLIA [id number] [address] [place] [address] [place] Hemoglobin (Bld) [Mass/Vol] 11.4 g/dL Low 11.5-15.5 [facility] Comment on above: Order Comment: Speci men Type: BLOOD SPECIMEN Ordering Facility: [facility] Address: [address] [place] [address] Performed By: #### L [id number] #### [facility] CLIA [id number] [address] [place] [address] [place] MCH (RBC) [Entitic mass] 31.5 pg Normal 26.0-34.0 [facility] Comment on above: Order Comment: Speci men Type: BLOOD SPECIMEN Ordering Facility: [facility] Address: [address] [place] [address] Performed By: #### L [id number] #### [facility] CLIA [id number] [address] [place] [address] [place] MCHC (RBC) [Mass/Vol] 33.8 g/dL Normal 30.5-36.0 [facility] Comment on above: Order Comment: Speci men Type: BLOOD SPECIMEN Ordering Facility: [facility] Address: [address] [place] [address] Performed By: #### L [id number] #### [facility] CLIA [id number] [address] [place] [address] [place] MCV (RBC) [Entitic vol] 93.1 fL Normal 80.0-100.0 [facility] Comment on above: Order Comment: Speci men Type: BLOOD SPECIMEN Ordering Facility: [facility] Address: [address] [place] [address] Performed By: #### L [id number] #### [facility] CLIA [id number] [address] [place] [address] [place] RBC (Bld) [#/Vol] 3.62 10*6/uL Low 3.90-5.20 [facility] Comment on above: Order Comment: Speci men Type: BLOOD SPECIMEN Ordering Facility: [facility] Address: [address] [place] [address] Performed By: #### L [id number] #### [facility] CLIA [id number] [address] [place] [address] [place] RUBELLA IGG ANTIBODYon 01-19 Interpretation and review of laboratory results Abnormal [facility] Rubella IgG, Qual Negative Abnormal Positive [facility] Comment on above: The result suggests no history of Rubella vaccination or exposure to Rubella virus, however, some individuals with past history of Rubella vaccination may test negative using this test as immunity to Rubella virus wanes over time after vaccination. Please correlate with vaccination history if applicable. [facility] RUBELLA IGG AB, QUAL Negative Abnormal Positive [facility] Comment on above: Order Comment: Oleg pritchett Type: BLOOD SPECIMEN Ordering Facility: [facility] Address: [address] [place] [address] Result Comment: The result suggests no history of Rubella vaccination or exposure to Rubella virus, however, some individuals with past history of Rubella vaccination may test negative using this test as immunity to Rubella virus wanes over time after vaccination. Please correlate with vaccination history if applicable. Performed By: #### 5 7021-8 #### [facility] CLIA [id number] [address] [place] [address] [place] Reagin and Treponema pallidu m IgG and IgM [Interp]on 01-19-2025 T. pallidum IgG+IgM IA Ql (S) Non-Reactive Normal Nonreactive [facility] Comment on above: Order Comment: Oleg pritchett Type: BLOOD SPECIMEN Ordering Facility: [facility] Address: [address] [place] [address] Performed By: #### 5 7021-8 #### [facility] CLIA [id number] [address] [place] [address] [place] Reagin+T pallidum IgG+IgM Se rPl-Impon 01-19-2025 Reagin and Treponema pallidum IgG and IgM [Interp] Cannot exclude recent Treponemal infection if specimen collected within 7-10 days after appearance of suspect lesions or 2-3 weeks after an exposure. Clinical correlation is required. Normal [facility] Comment on above: Order Comment: [facility] Type: BLOOD SPECIMEN Ordering Facility: [facility] Address: [address] [place] [address] Performed By: #### 5 7021-8 #### [facility] CLIA [id number] [address] [place] [address] [place] THYROID STIMULATING HORMONEo n 01-19-2025 TSH Qn 2.19 m[IU]/L [facility] Comment on above: If the patient is pr egnant, TSH reference range varies by gestational period: First Trimester (weeks 9-12): 0.180-2.990 mIU/L Second Trimester: 0.110-3.980 mIU/L Third Trimester: 0.480-4.710 mIU/L Vignesh Ceja et al. A Practical Approach for the Verifications and Determination of Site- and Trimester-Specific Reference Intervals for Thyroid Function tests in . Thyroid, 2019:29:3:412-420. Robert Cuenca et al. 2017 Guidelines of the [place] Thyroid Association for the Diagnosis and Management of Thyroid Disease during and the . Thyroid, 2017:27:3:315-389. TRICHOMONAS VAGINALIS NAATon 01-19-2025 T. vaginalis DNA KIMBERLYN+probe Ql (Unsp spec) Not detected Normal Not detected [facility] Comment on above: Order Comment: Speci men Type: BLOOD SPECIMEN Ordering Facility: [facility] Address: [address] [place] [address] Performed By: #### 5 7021-8 #### [facility] CLIA [id number] [address] [place] [address] [place] TSH Qnon 01-19-2025 Interpretation and review of laboratory results Normal [facility] TSH SerPl-aCncon 01-19-2025 TSH Qn 2.190 m[IU]/L Normal 0.270-4.200 [facility] Comment on above: Order Comment: Speci shreyas Type: BLOOD SPECIMEN Ordering Facility: [facility] Address: [address] [place] [address] Result Comment: If t he patient is , TSH reference range varies by gestational period: First Trimester (weeks 9-12): 0.180-2.990 mIU/L Second Trimester: 0.110-3.980 mIU/L Third Trimester: 0.480-4.710 mIU/L Vignesh Ceja et al. A Practical Approach for the Verifications and Determination of Site- and Trimester-Specific Reference Intervals for Thyroid Function tests in . Thyroid, 2019:29:3:412-420. Robert Cuenca et al. 2017 Guidelines of the [place] Thyroid Association for the Diagnosis and Management of Thyroid Disease during and the . Thyroid, 2017:27:3:315-389. Performed By: #### 5 7021-8 #### [facility] CLIA [id number] [address] [place], [place] [id number] [place] TYPE + SCREEN PRENATALon ABO group Nom (Bld) O [facility] Blood group antibody screen Ql Negative [facility] Rh Nom (Bld) Positive [facility] Type and Screen Expiration 01/22/2025 23:59 [facility] ABO O Normal [facility] Comment on above: Order Comment: Speci men Type: BLOOD SPECIMEN Ordering Facility: [facility] Address: [address] [place] [address] Performed By: #### T SPN #### [facility] CLIA [id number] [address] [place] [address] [place] Rh Nom (Bld) Positive Normal [facility] Comment on above: Order Comment: Speci men Type: BLOOD SPECIMEN Ordering Facility: [facility] Address: [address] [place] [address] Performed By: #### T SPN #### [facility] CLIA [id number] [address] [place] [address] [place] TYPE AND SCREEN EXPIRATION 01/22/2025 23:59 Normal [facility] Comment on above: Order Comment: Speci men Type: BLOOD SPECIMEN Ordering Facility: [facility] Address: [address] [place] [address] Performed By: #### T SPN #### [facility] CLIA [id number] [address] [place] [address] [place] ARYAN BY IFA SCREENon 04-19-20 21 ARYAN PATTERN Negative Normal [facility] Comment on above: Order Comment: Speci men Type: BLOOD SPECIMEN Performed By: #### A NAIFS #### [facility] CLIA [id number] [address] [place], [place] [address] [address] [place] ARYAN TITER Negative Normal NEGAT [facility] Comment on above: Order Comment: Speci men Type: BLOOD SPECIMEN Result Comment: Norm al range : negative at <1:80 serum dilution. Performed By: #### A NAIFS #### [facility] CLIA [id number] [address] [place] [id number] [place] Nuclear Ab IF (S) [Titer] Negative Normal NEGAT [facility] Comment on above: Order Comment: Speci men Type: BLOOD SPECIMEN Result Comment: Norm al range : negative at <1:80 serum dilution. Approximately 6% of patients with connective tissue diseases with low positive EIA values are negative by IFA. Recommend follow-up with specific antinuclear antibodies if clinically indicated. Test performed using Indirect Fluorescence Immunoassay technology (IFA) using HEp-2 cells. Performed By: #### A NAIFS #### [facility] CLIA [id number] [address] [place] [place] [id number] [place] CBC W Auto Differential pane l (Bld)on 04-19-2021 Basophils (Bld) [#/Vol] 10*3/uL Normal <0.11 [facility] Comment on above: Order Comment: Speci men Type: BLOOD SPECIMEN Performed By: #### 5 7021-8 #### [facility] CLIA [id number] [address] [place] [address] [place] Basophils/100 WBC (Bld) 0.4 % Normal [facility] Comment on above: Order Comment: Speci men Type: BLOOD SPECIMEN Performed By: #### 5 7021-8 #### [facility] CLIA [id number] [address] [place] [address] [facility] [place] Differential cell count method Nom (Bld) Auto Normal [facility] Comment on above: Order Comment: Speci men Type: BLOOD SPECIMEN Performed By: #### 5 7021-8 #### [facility] CLIA [id number] [address] [place] [address] [place] Eosinophils (Bld) [#/Vol] 0.09 10*3/uL Normal <0.46 [facility] Comment on above: Order Comment: Speci men Type: BLOOD SPECIMEN Performed By: #### 5 7021-8 #### [facility] CLIA [id number] [address] [place] [address] [facility] [place] Eosinophils/100 WBC (Bld) 1.6 % Normal [facility] Comment on above: Order Comment: Speci men Type: BLOOD SPECIMEN Performed By: #### 5 7021-8 #### [facility] CLIA [id number] [address] [place] [address] [facility] [place] Erythrocyte distribution width (RBC) [Ratio] 11.5 % Normal 11.5-15.0 [facility] Comment on above: Order Comment: Speci men Type: BLOOD SPECIMEN Performed By: #### 5 7021-8 #### [facility] CLIA [id number] [address] [place] [address] [facility] [place] Hematocrit (Bld) [Volume fraction] 39.6 % Normal 36.0-46.0 [facility] Comment on above: Order Comment: Speci men Type: BLOOD SPECIMEN Performed By: #### 5 7021-8 #### [facility] CLIA [id number] [address] [place] [address] [place] Hemoglobin (Bld) [Mass/Vol] 13.3 g/dL Normal 11.5-15.5 [facility] Comment on above: Order Comment: Speci men Type: BLOOD SPECIMEN Performed By: #### 5 7021-8 #### [facility] CLIA [id number] [address] [place] [address] [facility] [place] Lymphocytes (Bld) [#/Vol] 2.26 10*3/uL Normal 1.00-4.00 [facility] Comment on above: Order Comment: Speci men Type: BLOOD SPECIMEN Performed By: #### 5 7021-8 #### [facility] CLIA [id number] [address] [facility] [address] [place] [facility] Lymphocytes/100 WBC (Bld) 39.9 % Normal [facility] Comment on above: Order Comment: Speci men Type: BLOOD SPECIMEN Performed By: #### 5 7021-8 #### [facility] CLIA [id number] [address] [facility] [address] [place] MCH (RBC) [Entitic mass] 31.0 pg Normal 26.0-34.0 [facility] Comment on above: Order Comment: Speci men Type: BLOOD SPECIMEN Performed By: #### 5 7021-8 #### [facility] CLIA [id number] [address] [place] [address] [place] MCHC (RBC) [Mass/Vol] 33.6 g/dL Normal 30.5-36.0 [facility] Comment on above: Order Comment: Speci men Type: BLOOD SPECIMEN Performed By: #### 5 7021-8 #### [facility] CLIA [id number] [address] [place] [address] [place] MCV (RBC) [Entitic vol] 92.3 fL Normal 80.0-100.0 [facility] Comment on above: Order Comment: Speci men Type: BLOOD SPECIMEN Performed By: #### 5 7021-8 #### [facility] CLIA [id number] [address] [place] [address] [place] Monocytes (Bld) [#/Vol] 0.47 10*3/uL Normal <0.87 [facility] Comment on above: Order Comment: Speci men Type: BLOOD SPECIMEN Performed By: #### 5 7021-8 #### [facility] CLIA [id number] [address] [place] [address] [place] Monocytes/100 WBC (Bld) 8.3 % Normal [facility] Comment on above: Order Comment: Speci men Type: BLOOD SPECIMEN Performed By: #### 5 7021-8 #### [facility] CLIA [id number] [address] [facility] [place] [address] [place] Neutrophils (Bld) [#/Vol] 2.82 10*3/uL Normal 1.45-7.50 [facility] Comment on above: Order Comment: Speci men Type: BLOOD SPECIMEN Performed By: #### 5 7021-8 #### [facility] CLIA [id number] [address] [facility] [address] [place] Neutrophils/100 WBC (Bld) 49.8 % Normal [facility] Comment on above: Order Comment: Speci men Type: BLOOD SPECIMEN Performed By: #### 5 7021-8 #### [facility] CLIA [id number] [address] [place] [address] [place] Platelet mean volume (Bld) [Entitic vol] 10.2 fL Normal 9.0-12.7 [facility] Comment on above: Order Comment: Speci men Type: BLOOD SPECIMEN Performed By: #### 5 7021-8 #### [facility] CLIA [id number] [address] [facility] [address] [place] Platelets (Bld) [#/Vol] 236 10*3/uL Normal 150-400 [facility] Comment on above: Order Comment: Speci men Type: BLOOD SPECIMEN Performed By: #### 5 7021-8 #### [facility] CLIA [id number] [address] [facility] [place] [address] [place] RBC (Bld) [#/Vol] 4.29 10*6/uL Normal 3.90-5.20 [facility] Comment on above: Order Comment: Speci men Type: BLOOD SPECIMEN Performed By: #### 5 7021-8 #### [facility] CLIA [id number] [address] [facility] [address] [place] WBC (Bld) [#/Vol] 5.66 10*3/uL Normal 3.70-11.00 [facility] Comment on above: Order Comment: Speci men Type: BLOOD SPECIMEN Performed By: #### 5 7021-8 #### [facility] CLIA [id number] [address] [place] [address] [facility] CRP SerPl-mCncon 04-19-2021 CRP [Mass/Vol] mg/L Normal <0.9 [facility] Comment on above: Order Comment: Speci men Type: BLOOD SPECIMEN Performed By: #### 1 988-5 #### [facility] CLIA [id number] [address] [place] [address] [facility] Comprehensive metabolic 2000 panelon 04-19-2021 Albumin [Mass/Vol] 4.6 g/dL Normal 3.9-4.9 [facility] Comment on above: Order Comment: Speci men Type: BLOOD SPECIMEN Performed By: #### 2 4323-8, 6-3 #### [facility] CLIA [id number] [address] [facility] [address] [place] ALP [Catalytic activity/Vol] 42 U/L Normal 34-123 [facility] Comment on above: Order Comment: Speci men Type: BLOOD SPECIMEN Performed By: #### 2 4323-8, 3016-3 #### [facility] CLIA [id number] [address] [facility] [place] [address] [place] [facility] ALT With P-5'-P [Catalytic activity/Vol] 11 U/L Normal 7-38 [facility] Comment on above: Order Comment: Speci men Type: BLOOD SPECIMEN Performed By: #### 2 4323-8, 3016-3 #### [facility] CLIA [id number] [address] [facility] [place] [place] [address] [place] Anion gap [Moles/Vol] 11 mmol/L Normal 9-18 [facility] Comment on above: Order Comment: Speci men Type: BLOOD SPECIMEN Performed By: #### 2 4323-8, 3016-3 #### [facility] CLIA [id number] [address] [facility] [place] [place] [address] [place] AST With P-5'-P [Catalytic activity/Vol] 13 U/L Normal 13-35 [facility] Comment on above: Order Comment: Speci men Type: BLOOD SPECIMEN Performed By: #### 2 4323-8, 3016-3 #### [facility] CLIA [id number] [address] [place] [address] [place] Bilirubin [Mass/Vol] 0.2 mg/dL Normal 0.2-1.3 [facility] Comment on above: Order Comment: Speci men Type: BLOOD SPECIMEN Performed By: #### 2 4323-8, 6-3 #### [facility] CLIA [id number] [address] [place] [address] [place] Calcium [Mass/Vol] 9.4 mg/dL Normal 8.5-10.2 [facility] Comment on above: Order Comment: Speci men Type: BLOOD SPECIMEN Performed By: #### 2 4323-8, 3015-3 #### [facility] CLIA [id number] [address] [place] [address] [place] Chloride [Moles/Vol] 102 mmol/L Normal 97-105 [facility] Comment on above: Order Comment: Speci men Type: BLOOD SPECIMEN Performed By: #### 2 4323-8, 6-3 #### [facility] CLIA [id number] [address] [place] [address] [place] CO2 [Moles/Vol] 24 mmol/L Normal 22-30 [facility] Comment on above: Order Comment: Speci men Type: BLOOD SPECIMEN Performed By: #### 2 4323-8, 6-3 #### [facility] CLIA [id number] [address] [place] [address] [place] Creatinine [Mass/Vol] 0.74 mg/dL Normal 0.58-0.96 [facility] Comment on above: Order Comment: Speci men Type: BLOOD SPECIMEN Performed By: #### 2 4323-8, 6-3 #### [facility] CLIA [id number] [address] [place] [address] [place] GFR/1.73 sq M.predicted among blacks MDRD (S/P/Bld) [Vol rate/Area] mL/min/{1.73_m2} Normal [facility] Comment on above: Order Comment: Speci men Type: BLOOD SPECIMEN Performed By: #### 2 4323-8, 3016-3 #### [facility] CLIA [id number] [address] [place] [address] [place] GFR/1.73 sq M.predicted among non-blacks MDRD (S/P/Bld) [Vol rate/Area] mL/min/{1.73_m2} Normal [facility] Comment on above: Order Comment: Speci men Type: BLOOD SPECIMEN Result Comment: eGFR (Estimated GFR) Units of measure: mL/min/1.73 meters squared eGFR is derived from the reexpressed MDRD Study equation using the following parameters: serum creatinine, age, gender and race. The creatinine assay has been calibrated to be traceable to IDMS. An eGFR <60 mL/min/1.73m2 for >3 months is consistent with chronic kidney disease. Refer to KDOQI guidelines for clinical interpretation. In patients with unstable renal function, e.g. those with acute kidney injury, the eGFR may not accurately reflect actual GFR. Performed By: #### 2 4323-8, 6-3 #### [facility] CLIA [id number] [address] [place] [address] [place] Glucose [Mass/Vol] 99 mg/dL Normal 74-99 [facility] Comment on above: Order Comment: Speci men Type: BLOOD SPECIMEN Result Comment: The [place] Diabetes Association (ADA) provides guidance for cutoff values for fasting glucose and random glucose. The ADA defines fasting as no caloric intake for at least 8 hours. Fasting plasma glucose results between 100 to 125 mg/dL indicate increased risk for diabetes (prediabetes). Fasting plasma glucose results greater than or equal to 126 mg/dL meet the criteria for diagnosis of diabetes. In the absence of unequivocal hyperglycemia, results should be confirmed by repeat testing. In a patient with classic symptoms of hyperglycemia or hyperglycemic crisis, random plasma glucose results greater than or equal to 200 mg/dL meet the criteria for diagnosis of diabetes. Reference: Standards of Medical Care in Diabetes 2016, [place] Diabetes Association. Diabetes Care. 2016.39(Suppl 1). Performed By: #### 2 4323-8, 3016-3 #### [facility] CLIA [id number] [address] [facility] [address] [place] Potassium [Moles/Vol] 4.1 mmol/L Normal 3.7-5.1 [facility] Comment on above: Order Comment: Speci men Type: BLOOD SPECIMEN Performed By: #### 2 4323-8, 6-3 #### [facility] CLIA [id number] [address] [place] [address] [place] Protein [Mass/Vol] 7.1 g/dL Normal 6.3-8.0 [facility] Comment on above: Order Comment: Speci men Type: BLOOD SPECIMEN Performed By: #### 2 4323-8, 6-3 #### [facility] CLIA [id number] [address] [facility] [address] [place] Sodium [Moles/Vol] 137 mmol/L Normal 136-144 [facility] Comment on above: Order Comment: Speci men Type: BLOOD SPECIMEN Performed By: #### 2 4323-8, 6-3 #### [facility] CLIA [id number] [address] [facility] [address] [place] Urea nitrogen [Mass/Vol] 10 mg/dL Normal 7-21 [facility] Comment on above: Order Comment: Speci men Type: BLOOD SPECIMEN Performed By: #### 2 4323-8, 3016-3 #### [facility] CLIA [id number] [address] [place] [address] [place] ESR Westergren method (Bld) [Velocity]on 04-19-2021 ESR (Bld) [Velocity] 2 mm/h Normal 0-20 [facility] Comment on above: Order Comment: Speci men Type: BLOOD SPECIMEN Performed By: #### 4 537-7 #### [facility] CLIA [id number] [address] [place] [address] [place] TSH SerPl-Alancon 04-19-2021 TSH Qn 1.100 m[IU]/L Normal 0.270-4.200 [facility] Comment on above: Order Comment: Speci men Type: BLOOD SPECIMEN Result Comment: If t he patient is , TSH reference range varies by gestational period: First Trimester (weeks 9-12): 0.180-2.990 mcIU/mL Second Trimester: 0.110-3.980 mcIU/mL Third Trimester: 0.480-4.710 mcIU/mL Vignesh Ceja et al. A Practical Approach for the Verifications and Determination of Site- and Trimester-Specific Reference Intervals for Thyroid Function tests in . Thyroid, 2019:29:3:412-420. Robert Cuenca, et al. 2017 Guidelines of the [place] Thyroid Association for the Diagnosis and Management of Thyroid Disease during and the . Thyroid, 2017:27:3:315-389. Performed By: #### 2 4323-8, 3016-3 #### [facility] CLIA [id number] [address] [place] [address] [place] US DVT LOWER LTon 03-30-2021 US DVT LOWER LT * * *Final Report* * * DATE OF EXAM: Mar 30 2021 1:45PM LDU 1006 - US DVT LOWER LT / PROCEDURE REASON: multiple diagnoses * * * * Physician Interpretation * * * * EXAMINATION: LEFT LOWER EXTREMITY DEEP VENOUS ULTRASOUND WITH DOPPLER IMAGING CLINICAL HISTORY: Mottled skin, left lower extremity pain. TECHNIQUE: Grayscale with compression maneuvers, color Doppler and spectral Doppler imaging of the left proximal deep veins was performed. Grayscale with compression maneuvers of the peroneal and posterior tibial veins was performed. The left great and small saphenous veins were evaluated at their insertion to the deep system. The contralateral common femoral vein was imaged for comparison. Images were obtained and stored in a permanent archive. MQ: [id number] COMPARISON: None RESULT: Limited visualization of mid left femoral vein and distal calf veins due to patient's body habitus. LEFT LOWER EXTREMITY PROXIMAL DEEP VEINS Distal External Iliac, Common Femoral and proximal Profunda Veins: Compression: Normal Doppler: Normal, spontaneous respirophasic flow. Normal response to augmentation. Femoral vein: Compression: Normal Doppler: Normal, spontaneous flow. Normal response to augmentation. Popliteal vein: Compression: Normal Doppler: Normal, spontaneous flow. Normal response to augmentation. CALF DEEP VEINS Peroneal veins: Normal compression. Posterior tibial veins: Normal compression. Gastrocnemius and Soleal veins: Not imaged. SUPERFICIAL VEINS Great saphenous: Patent and compressible at insertion into common femoral vein; not otherwise assessed. Small Saphenous: Patent and compressible in the proximal calf, not otherwise assessed. RIGHT LOWER EXTREMITY (FOR COMPARISON) Common Femoral Vein: Compression: Normal Doppler: Normal, spontaneous respirophasic flow. Normal response to augmentation. IMPRESSION: Negative study for proximal DVT in the left lower extremity. Negative study for calf DVT in the left lower extremity. Negative study for superficial thrombophlebitis in the imaged segments of the left lower extremity. Collateral Analyst: NELLY Transcribe Date/Time: Mar 30 2021 4:48P Dictated by : KALPESH SERRANO MD This examination was interpreted and the report reviewed and electronically signed by: KALPESH SERRANO MD on Mar 30 2021 4:49PM EST [id number] Normal [facility] MRI HIP WO IVCON LTon 2017 MRI HIP WO IVCON LT * * *Final Report* * *DATE OF EXAM: Mar 11 2018 8:16PM MDM 0206 - MRI HIP WO IVCON LT / REASON: M25.552-Pain in left hip * * * * Physician Interpretation * * * * EXAMINATION: MRI HIP WO IVCON LTCLINICAL HISTORY: Pain in left hip, chronicTechnique: MRI HIP WO IVCON LTComparison: NoneRESULT:Suboptimal study due to motion artifact. Small areas of cartilage defects in the superolateral hip joint. No joint effusion. Degenerative changes in the labrum. Visualized tendons and ligaments are intact. No fracture or marrow replacing process. SI joints are maintained. Muscle bulk is maintained and is normal in signal. Neurovascular structures are intact. Visceral pelvis is unremarkable.IMPRESSI ON:Degenerative changes in the left hip and labrum. No fracture.Transcriptio nist: [facility] Transcribe Date/Time: Mar 11 2018 9:35PDictated by : MANJEET SOLIS MDThis examination was interpreted and the report reviewed and electronically signed by: MANJEET SOLIS MD on Mar 11 2018 9:42PM [id number] IACN Normal [facility] HIPS BILAT WITH PELVIS WHEN PERFORMED MIN 5 VIEWSon 11-22-2017 HIPS BILAT WITH PELVIS WHEN PERFORMED MIN 5 VIEWS Performed at [facility] APPROVED BY: Alok Kohler MD EXAM TITLE:HIPS BILAT WITH PELVIS WHEN PERFORMED MIN 5 VIEWS DATE:11/22/2017 02:38 COMPARISON: None. CLINICAL INDICATION/HISTORY: Sciatica TECHNIQUE: HIPS BILAT WITH PELVIS WHEN PERFORMED MIN 5 VIEWS Findings/impression: No evidence acute fracture, dislocation or bone destruction. Joint spaces are well preserved. Sacroiliac joints are symmetrical. 5 mm pubic symphysis diastases with cortical irregularity of the left side of the pubic symphysis. Findings may related to degree of osteitis pubis Normal [facility] LUMBOSACRAL SPINE 2 OR 3 VIE WSon 11-22-2017 LUMBOSACRAL SPINE 2 OR 3 VIEWS Performed at [facility] APPROVED BY: Alok Kohler MD EXAM TITLE: LUMBAR SPINE 3 VIEWS DATE:11/22/2017 02:38 COMPARISON: None. CLINICAL INDICATION/HISTORY: Back pain down legs TECHNIQUE: AP, lateral, and L5-S1 spot images were obtained FINDINGS: No compression fracture is seen.No subluxations are seen. Mild degree multilevel endplate degenerative changes lower thoracic/upper lumbar spineIncluded portions of the sacrum and sacroiliac joints are unremarkable.No abnormal abdominal calcifications are seen. IMPRESSION:No acute osseous abnormalityMild degree multilevel endplate degenerative changes lower thoracic/upper lumbar spine Normal [facility] Vital Signs Date Time Vital Sign Value Performing Clinician Alena david 03-11-2025 13:17-040 Body mass index (BMI) [Ratio] 25.12 kg/m2 Chip French MD Work Phone: [facility] 03-11-2025 13:17040 Body weight 63.5 kg Chip French MD Work Phone: [facility] 03-11-2025 13:17-0400 Diastolic blood pressure 56 mm[Hg] Chip French MD Work Phone: [facility] 03-11-2025 13:17-0400 Systolic blood pressure 98 mm[Hg] Chip French MD Work Phone: [facility] 02-11-2025 11:41-0400 Body mass index (BMI) [Ratio] 24.58 kg/m2 Caridad Plotts TEACHER EMOTIONALLY IMPAIRED.CNM Work Phone: [facility] 02-11-2025 11:41-0400 Body weight 62.14 kg Caridad Plotts TEACHER EMOTIONALLY IMPAIRED.CNM Work Phone: [facility] 02-11-2025 11:41-0400 Diastolic blood pressure 60 mm[Hg] Caridad Plotts TEACHER EMOTIONALLY IMPAIRED.CNM Work Phone: [facility] 02-11-2025 11:41-0400 Systolic blood pressure 100 mm[Hg] Caridad Plotts TEACHER EMOTIONALLY IMPAIRED.CNM Work Phone: [facility] 01-19-2025 11:05-0400 Body height 159 cm Erika Haury TEACHER EMOTIONALLY IMPAIRED.NITRATOR OPERATOR Work Phone: [facility] 01-19-2025 11:05-0400 Body mass index (BMI) [Ratio] 23.15 kg/m2 Erika Haury TEACHER EMOTIONALLY IMPAIRED.NITRATOR OPERATOR Work Phone: [facility] 01-19-2025 11:05-0400 Body weight 58.51 kg Erika Haury TEACHER EMOTIONALLY IMPAIRED.NITRATOR OPERATOR Work Phone: [facility] 01-19-2025 11:05-0400 Diastolic blood pressure 62 mm[Hg] Erika Haury TEACHER EMOTIONALLY IMPAIRED.NITRATOR OPERATOR Work Phone: [facility] 01-19-2025 11:05-0400 Systolic blood pressure 110 mm[Hg] Erika Haury TEACHER EMOTIONALLY IMPAIRED.NITRATOR OPERATOR Work Phone: [facility] Encounters Encounter Date Encounter Type Care Provider Facility Start: 05-20-2025 End: 05-20-2025 ambulatory CARIDAD GLYNN Facility:[facility] Start: 05-08-2025 End: 05-08-2025 ambulatory [facility] Facility:[facility] Start: 04-22-2025 End: 04-22-2025 ambulatory [facility] Facility:[facility] Start: 04-15-2025 End: 04-15-2025 ambulatory ARNALDO STEWART Facility:[facility] Start: 04-09-2025 End: 04-09-2025 ambulatory CHIP FRENCH Facility:[facility] Start: 03-12-2025 End: 03-12-2025 Telephone encounter Ruth Shook RN Maternal Medicine Comment on above: [employer] Specialist - O ther ([employer]AF) Start: 03-11-2025 End: 03-11-2025 ambulatory CHIP FRENCH Facility:[facility] Start: 03-11-2025 End: 03-11-2025 Patient encounter procedure Chip French MD Work Phone: OB/Gynecology Comment on above: Encounter for superv ision of high risk in second trimester, antepartum (HCC) (Primary Dx); 24 weeks gestation of (HCC); Incomplete right bundle branch block Start: 02-12-2025 End: 02-12-2025 Telephone encounter Erika Lucas APRN.CNP Work Phone: OB/Gynecology Comment on above: Appointment Start: 02-11-2025 End: 02-11-2025 ambulatory [facility] Facility:[facility] Start: 02-11-2025 End: 02-11-2025 ambulatory ERIKA LUCAS Facility:[facility] Start: 02-11-2025 End: 02-11-2025 Patient encounter procedure Whi [employer] 1 Consulting Analyst Mfm Wstr [employer] Maternal Medicine Comment on above: Encounter for anatomic survey (HCC) (Primary Dx); 20 weeks gestation of (HCC) Encounter for superv ision of high risk in second trimester, antepartum (HCC) (Primary Dx); Rubella non-immune status, antepartum (HCC); Heartburn during in second trimester (HCC); History of headache; Depression with anxiety; Gastroparesis; 20 weeks gestation of (HCC) Start: 01-20-2025 End: 03-22-2025 Follow-up encounter Chip French MD Work Phone: OB/Gynecology Comment on above: Results Start: 01-20-2025 End: 01-20-2025 Telephone encounter Ruth Shook RN Maternal Medicine Comment on above: [employer] Specialist - [employer] ther ([employer]) Start: 01-19-2025 End: 01-19-2025 Patient encounter procedure Erika Lucas APRN.CNP Work Phone: OB/Gynecology Comment on above: Encounter for superv ision of high risk in second trimester, antepartum (HCC) (Primary Dx); 17 weeks gestation of (HCC); Screen for STD (sexually transmitted disease); Nausea and vomiting during (HCC); Depression with anxiety; Heartburn during in second trimester (HCC); History of headache; Shortness of breath; Gastroparesis; Attention deficit hyperactivity disorder (ADHD), unspecified ADHD type; Tobacco smoking complicating in second trimester (HCC); Screening for cervical cancer; Special screening examination for human papillomavirus (HPV); Incomplete right bundle branch block; Late care (HCC) Start: 01-19-2025 End: 01-19-2025 ambulatory ERIKA LUCAS Facility:[facility] Start: 03-11-2018 Patient encounter [facility] Start: 09-07-2016 End: 11-22-2016 Patient requested procedure Erika Lucas APRN.CNP Work Phone: [facility] Procedures Date Procedure Procedure Detail Performing Clinician Start: 02-11-2025 Us preg uterus after 1st trimest 07/16 gestation Erika Lucas APRN.CNP Work Phone: Start: 01-19-2025 Antibody screen SHARI GLYNN Comment on above: Order Comment: Speci men Type: BLOOD SPECIMEN Ordering Facility: [facility] Address: [address] [place] [address] Performed By: #### T SPN #### [facility] [place] [id number] [address] [place] [address] [place] Plan of Treatment Date Care Activity Detail Author Start: 02-12-2027 Urine microalbumin profile DTaP,Tdap,Td Vaccine (8 - Td or Tdap) [facility] Start: 01-19-2026 Screening for malign ant neoplasm of cervix Cervical Cancer Screening [facility] Start: 09-01-2025 Screening for malign ant neoplasm of cervix Cervical Cancer Screening [facility] Start: 05-02-2025 RSV Vaccine (1 - Ris k 1-dose series) RSV Vaccine (1 - Risk 1-dose series) [facility] Start: 04-09-2025 End: 04-09-2025 Patient encounter procedure 04/09/2025 11:15 AM EDT Routine Office Visit OB/Gynecology [address] [place] [address] Caridad Glynn APRN.CNM [address] [place] [address] OB Needs EKG OB/Gynecology Comment on above: OB Needs EKG Start: 04-07-2025 End: 04-07-2025 Patient encounter procedure 04/07/2025 10:30 AM EDT Routine Office Visit OB/Gynecology [address] [place] [address] Chrissie Willoughby APRN.CNM [address] [place] [address] OB Needs EKG OB/Gynecology Comment on above: OB Needs EKG Start: 03-16-2025 Influenza vaccination Influenza Vacc ine (#1) [facility] Start: 03-11-2025 End: 06-10-2025 ANEMIA REFLEX PANEL ANEMIA REFLEX PANEL Lab Routine Encounter for supervision of high risk in second trimester, antepartum (HCC) 24 weeks gestation of (HCC) Expected: 03/11/2025, Expires: 06/10/2025 [facility] Comment on above: Expected: 03/11/2025 , Expires: 06/10/2025 Start: 03-11-2025 End: 03-11-2026 GESTATIONAL GLUCOSE SCREEN, 1-HOUR, 50 GRAM, NON-FASTING GESTATIONAL GLUCOSE SCREEN, 1-HOUR, 50 GRAM, NON-FASTING Lab Routine Encounter for supervision of high risk in second trimester, antepartum (HCC) 24 weeks gestation of (HCC) Expected: 03/11/2025, Expires: 03/11/2026 [facility] Work Phone: Comment on above: Expected: 03/11/2025 , Expires: 03/11/2026 Start: 03-11-2025 End: 03-11-2026 SYPHILIS TREPONEMAL W/REFLEX SYPHILIS TREPONEMAL W/REFLEX Lab Routine Encounter for supervision of high risk in second trimester, antepartum (HCC) 24 weeks gestation of (HCC) Expected: 03/11/2025, Expires: 03/11/2026 [facility] Comment on above: Expected: 03/11/2025 , Expires: 03/11/2026 Start: 03-11-2025 End: 03-11-2025 Patient encounter procedure 03/11/2025 1:10 PM EDT Routine Office Visit OB/Gynecology [address] [place] [address] Chip French MD [address] [place] [address] OB OB/Gynecology Comment on above: OB Start: 02-18-2025 End: 02-18-2025 Patient encounter procedure 02/18/2025 3:20 PM EDT Routine Office Visit OB/Gynecology [address] [place] [address] Michelle Molina MD [address] [place] [address] NEW OB LMP ?? OB/Gynecology Comment on above: NEW OB LMP ?? Start: 02-16-2025 End: 02-16-2025 Patient encounter procedure 02/16/2025 3:40 PM EDT Office Visit OB/Gynecology [address] [place] [address] Candelaria Goss MD [address] [place] [address] colposcopy OB/Gynecology Comment on above: colposcopy Start: 02-12-2025 End: 02-12-2025 Patient encounter procedure 02/12/2025 11:15 AM EDT Routine Office Visit OB/Gynecology [address] [place] [address] Chrissie Willoughby APRN.CNM [address] [place] [address] Anatomy/OB OB/Gynecology Comment on above: Anatomy/OB Start: 02-11-2025 End: 02-11-2025 Patient encounter procedure 02/11/2025 10:30 AM EDT Routine Office Visit Maternal Medicine [address] [place] [address] Anatomy Maternal Medicine Comment on above: Anatomy Start: 01-19-2025 End: 04-20-2025 ANEMIA REFLEX PANEL [facility] Work Phone: Comment on above: Expected: 01/19/2025 , Expires: 04/20/2025 Start: 01-19-2025 End: 04-20-2025 Hemoglobin A1c in Blood [facility] Comment on above: Expected: 01/19/2025 , Expires: 04/20/2025 Start: 01-19-2025 End: 04-20-2025 HEMOGLOBIN EVALUATION CASCADE [facility] Comment on above: Expected: 01/19/2025 , Expires: 04/20/2025 Start: 01-19-2025 End: 04-20-2025 Hepatitis B virus surface Ag [Presence] in Serum [facility] Comment on above: Expected: 01/19/2025 , Expires: 04/20/2025 Start: 01-19-2025 End: 04-20-2025 Hepatitis C virus Ab [Presence] in Serum [facility] Comment on above: Expected: 01/19/2025 , Expires: 04/20/2025 Start: 01-19-2025 End: 04-20-2025 HIV 1+2 Ab [Presence] in Serum or Plasma by Immunoassay [facility] Comment on above: Expected: 01/19/2025 , Expires: 04/20/2025 Start: 01-19-2025 End: 01-19-2026 OBSTETRIC ULTRASOUND WHI OBSTETRIC ULTRASOUND WHI Anc Imaging Routine Encounter for supervision of high risk in second trimester, antepartum (HCC) Expected: 01/19/2025, Expires: 01/19/2026 [facility] Comment on above: Expected: 01/19/2025 , Expires: 01/19/2026 Start: 01-19-2025 End: 04-20-2025 SYPHILIS TREPONEMAL W/REFLEX [facility] Comment on above: Expected: 01/19/2025 , Expires: 04/20/2025 Start: 03-16-2024 Covid-19 Vaccine () Covid-19 Vaccine () [facility] Start: 2013 Pneumococcal vaccination Pneumococcal Vaccine (1 of 2 - PCV) [facility] Bacteria identified in Urine by Culture BACTERIAL CULTURE, URINE Microbiology Routine Encounter for supervision of high risk in second trimester, antepartum (HCC) 01/19/2025 11:45 AM EDT [facility] Chlamydia trachomatis+Neisseria gonorrhoeae DNA [Presence] in Unspecified specimen by KIMBERLYN with probe detection GONORRHEA/CHLAMYDIA NAAT Lab Routine Encounter for supervision of high risk in second trimester, antepartum ([facility]) Screen for STD (sexually transmitted disease) 01/19/2025 11:45 AM EDT [facility] COLPOSCOPY COLPOSCOPY Proce dures Routine Atypical squamous cells of undetermined significance (ASCUS) on Papanicolaou smear of cervix Ordered: 01/23/2025 [facility] Work Phone: Comment on above: Ordered: 01/23/2025 Comprehensive metabo lic 2000 panel - Serum or Plasma COMPREHENSIVE METABOLIC PANEL Lab Routine Encounter for supervision of high risk in second trimester, antepartum ([facility]) Shortness of breath 01/19/2025 11:56 AM EDT [facility] ECG COMPLETE ECG COMPLETE ECG Routine Encounter for supervision of high risk in second trimester, antepartum (HCC) Ordered: 01/19/2025 [facility] Comment on above: Ordered: 01/19/2025 ECG COMPLETE ECG COMPLETE ECG Routine Encounter for supervision of high risk in second trimester, antepartum ([facility]) 24 weeks gestation of ([facility]) Incomplete right bundle branch block Ordered: 03/11/2025 [facility] Comment on above: Ordered: 03/11/2025 PAP TEST PAP TEST Lab Srikanth gamboa 17 weeks gestation of (HCC) Screening for cervical cancer Special screening examination for human papillomavirus (HPV) 01/19/2025 11:45 AM EDT [facility] TRICHOMONAS VAGINALI S NAAT TRICHOMONAS VAGINALIS NAAT Lab Routine Encounter for supervision of high risk in second trimester, antepartum (HCC) Screen for STD (sexually transmitted disease) 01/19/2025 11:45 AM EDT [facility] Immunizations Immunization Date Immunization Notes Care Provider Bridger garcia 04-25-2017 influenza, injectabl e, quadrivalent, contains preservative Erika Haury TEACHER EMOTIONALLY IMPAIRED.NITRATOR OPERATOR Work Phone: [facility] 04-25-2017 influenza virus vacc ine, unspecified formulation Erika Haury TEACHER EMOTIONALLY IMPAIRED.NITRATOR OPERATOR Work Phone: [facility] 04-20-2017 influenza, seasonal, injectable, preservative free Erika Haury TEACHER EMOTIONALLY IMPAIRED.NITRATOR OPERATOR Work Phone: [facility] 02-12-2017 tetanus toxoid, redu sophia diphtheria toxoid, and acellular pertussis vaccine, adsorbed Erika Haury TEACHER EMOTIONALLY IMPAIRED.NITRATOR OPERATOR Work Phone: [facility] Work Phone: 05-03-2011 influenza virus vacc ine, unspecified formulation Erika Haury TEACHER EMOTIONALLY IMPAIRED.NITRATOR OPERATOR Work Phone: [facility] Work Phone: 09-04-2007 HPV, unspecified formulation Erika Haury TEACHER EMOTIONALLY IMPAIRED.NITRATOR OPERATOR Work Phone: [facility] 05-01-2007 HPV, unspecified formulation Erika Haury TEACHER EMOTIONALLY IMPAIRED.NITRATOR OPERATOR Work Phone: [facility] 05-01-2007 influenza virus vacc ine, whole virus Erika Lucas TEACHER EMOTIONALLY IMPAIRED.NITRATOR OPERATOR Work Phone: [facility] 05-01-2007 meningococcal polysaccharide (groups A, C, Y and W-135) diphtheria toxoid conjugate vaccine (MCV4P) Erika Lucas APRN.NITRATOR OPERATOR Work Phone: [facility] 02-27-2007 hepatitis B vaccine, pediatric or pediatric/adolescent dosage Erikachantell Lucas APRN.NITRATOR OPERATOR Work Phone: [facility] 02-27-2007 HPV, unspecified formulation Erika Haury TEACHER EMOTIONALLY IMPAIRED.NITRATOR OPERATOR Work Phone: [facility] 02-27-2007 tetanus toxoid, redu sophia diphtheria toxoid, and acellular pertussis vaccine, adsorbed Erika Haury TEACHER EMOTIONALLY IMPAIRED.NITRATOR OPERATOR Work Phone: [facility] 02-27-2007 varicella virus vaccine Krishna y Haury TEACHER EMOTIONALLY IMPAIRED.NITRATOR OPERATOR Work Phone: [facility] 04-29-2000 hepatitis B vaccine, pediatric or pediatric/adolescent dosage Erika Haury TEACHER EMOTIONALLY IMPAIRED.NITRATOR OPERATOR Work Phone: [facility] 03-30-2000 hepatitis B vaccine, pediatric or pediatric/adolescent dosage Erika Haury TEACHER EMOTIONALLY IMPAIRED.NITRATOR OPERATOR Work Phone: [facility] 03-30-2000 measles, mumps and rubella virus vaccine Erika Haury TEACHER EMOTIONALLY IMPAIRED.NITRATOR OPERATOR Work Phone: [facility] 03-30-2000 varicella virus vaccine Krishna y Haury TEACHER EMOTIONALLY IMPAIRED.NITRATOR OPERATOR Work Phone: [facility] 03-20-2000 anthrax vaccine Erika Haury TEACHER EMOTIONALLY IMPAIRED.NITRATOR OPERATOR Work Phone: [facility] 05-04-1999 diphtheria, tetanus toxoids and acellular pertussis vaccine, unspecified formulation Erika Haury TEACHER EMOTIONALLY IMPAIRED.NITRATOR OPERATOR Work Phone: [facility] 05-04-1999 hepatitis B vaccine, pediatric or pediatric/adolescent dosage Erika Haury TEACHER EMOTIONALLY IMPAIRED.NITRATOR OPERATOR Work Phone: [facility] 05-04-1999 poliovirus vaccine, unspecified formulation Erika Haury TEACHER EMOTIONALLY IMPAIRED.NITRATOR OPERATOR Work Phone: [facility] 01-23-1996 diphtheria, tetanus toxoids and acellular pertussis vaccine, unspecified formulation Erika Haury TEACHER EMOTIONALLY IMPAIRED.NITRATOR OPERATOR Work Phone: [facility] 01-23-1996 haemophilus influenz ae type b vaccine, conjugate unspecified formulation Erika Haury TEACHER EMOTIONALLY IMPAIRED.NITRATOR OPERATOR Work Phone: [facility] 01-23-1996 measles, mumps and rubella virus vaccine Erika Haury TEACHER EMOTIONALLY IMPAIRED.NITRATOR OPERATOR Work Phone: [facility] 01-23-1996 poliovirus vaccine, unspecified formulation Erika Haury TEACHER EMOTIONALLY IMPAIRED.NITRATOR OPERATOR Work Phone: [facility] 06-25-1995 diphtheria, tetanus toxoids and acellular pertussis vaccine, unspecified formulation Erika Haury TEACHER EMOTIONALLY IMPAIRED.NITRATOR OPERATOR Work Phone: [facility] 06-25-1995 haemophilus influenz ae type b vaccine, conjugate unspecified formulation Erika Haury TEACHER EMOTIONALLY IMPAIRED.NITRATOR OPERATOR Work Phone: [facility] 05-22-1995 diphtheria, tetanus toxoids and acellular pertussis vaccine, unspecified formulation Erika Haury TEACHER EMOTIONALLY IMPAIRED.NITRATOR OPERATOR Work Phone: [facility] 05-22-1995 haemophilus influenz ae type b vaccine, conjugate unspecified formulation Erika Haury TEACHER EMOTIONALLY IMPAIRED.NITRATOR OPERATOR Work Phone: [facility] 05-22-1995 poliovirus vaccine, unspecified formulation Erika Haury TEACHER EMOTIONALLY IMPAIRED.NITRATOR OPERATOR Work Phone: [facility] 01-08-1995 haemophilus influenz ae type b vaccine, conjugate unspecified formulation Erika Haury TEACHER EMOTIONALLY IMPAIRED.NITRATOR OPERATOR Work Phone: [facility] 01-08-1995 poliovirus vaccine, unspecified formulation Erika Haury TEACHER EMOTIONALLY IMPAIRED.NITRATOR OPERATOR Work Phone: [facility] Payers Date Payer Category Payer Medicaid [id number] 2024 Medicaid [id number] Social History Date Type Detail Facility Start: [facility] History of tobacco use Cigarette Smoker [facility] Start: 01-12-2025 End: 01-19-2025 Cigarettes smoked current (pack per day) - Reported 1 [facility] Start: 01-19-2025 Tobacco use and exposure Smoke less tobacco non-user [facility] Start: 01-19-2025 End: 01-23-2025 Alcoholic beverage intake Current non-drinker of alcohol (finding) [facility] Start: 01-12-2025 End: 01-19-2025 Tobacco use panel [facility] Start: 06-16-2012 Adult Depression Scr eening Assessment 3 [facility] Start: 10-04-2024 [facility] Start: 1995 Sex assigned at Not on file C [facility] Goals Date Patient Goal Desired Activity /State Personal health goal Functional Status Date Assessment Result Facility 01-14-2015 Are you deaf, or do you have serious difficulty hearing No 01/14/2015 11:01 AM Maricel Hensley Ma [facility] 01-14-2015 Are you blind, or do you have serious difficulty seeing, even when wearing glasses No 01/14/2015 11:01 AM Maricel Hensley Ma [facility] 01-14-2015 Do you have serious difficulty walking or climbing stairs No 01/14/2015 11:01 AM Maricel Hensley Ma [facility] 01-14-2015 Do you have difficul ty dressing or bathing No 01/14/2015 11:01 AM Maricel Hensley Ma [facility] 01-14-2015 Because of a physica l, mental, or emotional condition, do you have difficulty doing errands alone such as visiting a physician's office or shopping No 01/14/2015 11:01 AM Maricel Hensley Ma [facility] Mental Status Date Assessment Result Facility 01-14-2015 Because of a physica l, mental, or emotional condition, do you have serious difficulty concentrating, remembering, or making decisions No 01/14/2015 11:01 AM Maricel Hensley Ma [facility] Clinical Notes 01-19-2025 to 03-12-2025 Telephone Encounter - Ruth Shook RN - 03/12/2025 9:58 AM EDTTelephone Encounter - Ruth Shook RN - 03/12/2025 9:58 AM EDTPatient InstructionsPatient InstructionsPatient Instructions Note Date & Type Note Facility 03-12-2025 Telephone encounter Note 2nd risk assessment form submitted 03/12/2025. Ruth Shook RN [facility] 03-12-2025 Miscellaneous Notes 2nd risk assessment form submitted 03/12/2025. Ruth Shook RN documented in this encounter [facility] 03-11-2025 Progress note Formatting of t his note might be different from the original. RR- VB No. LOF No. CTXS No. Movement: present. Other c/o: occas Shortness of Breath, palpitaitons, has had before. Has h/o right BBB. No current Shortness of Breath, no edema. Medication list reviewed. SENSITIVE EXAM: Sensitive exam not performed. Physical Exam See Flow Sheet Abd: soft, nontender, gravid Ext: edema: Trace A/P 24w4d Estimated Date of Delivery: 06/27/25 ASSESSMENT/PLAN: 1. Encounter for supervision of high risk in second trimester, antepartum ([facility]) - ICD9: V23.9, ICD10: O09.92 (primary diagnosis) - GESTATIONAL GLUCOSE SCREEN, 1-HOUR, 50 GRAM, NON-FASTING - SYPHILIS TREPONEMAL W/REFLEX - ANEMIA REFLEX PANEL - ECG COMPLETE X - ANEMIA REFLEX PANEL 4. 24 weeks gestation of ([facility]) - ICD9: V22.2, ICD10: Z3A.24 - GESTATIONAL GLUCOSE SCREEN, 1-HOUR, 50 GRAM, NON-FASTING - SYPHILIS TREPONEMAL W/REFLEX - ANEMIA REFLEX PANEL - ECG COMPLETE 6. Incomplete right bundle branch block - ICD9: 426.4, ICD10: I45.10 - ECG COMPLETE fu in 4 weeks or prn on protonix for nausea and heartburn and helps and not taking zofran Chip French MD [facility] 03-11-2025 Miscellaneous Notes RR- VB No. LOF No. CTXS No. Movement: present. Other c/o: occas Shortness of Breath, palpitaitons, has had before. Has h/o right BBB. No current Shortness of Breath, no edema. Medication list reviewed. SENSITIVE EXAM: Sensitive exam not performed. Physical Exam See Flow Sheet Abd: soft, nontender, gravid Ext: edema: Trace A/P 24w4d Estimated Date of Delivery: 06/27/25 ASSESSMENT/PLAN: 1. Encounter for supervision of high risk in second trimester, antepartum ([facility]) - ICD9: V23.9, ICD10: O09.92 (primary diagnosis) - GESTATIONAL GLUCOSE SCREEN, 1-HOUR, 50 GRAM, NON-FASTING - SYPHILIS TREPONEMAL W/REFLEX - ANEMIA REFLEX PANEL - ECG COMPLETE X - ANEMIA REFLEX PANEL 4. 24 weeks gestation of ([facility]) - ICD9: V22.2, ICD10: Z3A.24 - GESTATIONAL GLUCOSE SCREEN, 1-HOUR, 50 GRAM, NON-FASTING - SYPHILIS TREPONEMAL W/REFLEX - ANEMIA REFLEX PANEL - ECG COMPLETE 6. Incomplete right bundle branch block - ICD9: 426.4, ICD10: I45.10 - ECG COMPLETE fu in 4 weeks or prn on protonix for nausea and heartburn and helps and not taking zofran Chip French MD documented in this encounter [facility] 03-11-2025 Instructions Joanie Jackson MA - 03/11/2025 1:14 PM EDT SEQUENTIAL SCREENINGS The [facility] offers sequential screenings for women who are interested in screenings for chromosomal abnormalities and certain defects during a . The sequential screen combines ultrasound and blood tests to determine the risk of chromosomal abnormalities, including Down's Syndrome (Trisomy 21) and Trisomy 18, as well as open neural tube defects including spina bifida. Ultrasound examination is performed between 11 weeks and 13 weeks gestational age. Blood tests are drawn after the ultrasound and again later in the between 15 and 21 weeks gestational age. Please let your physician know if you are interested in this testing. It will require an appointment with our radiation technician. This is not an ultrasound performed by a physician in our office during a routine visit. SIGNS AND SYMPTOMS OF LABOR 1. Contractions every 10 minutes or more often 2. Clear, pink, or brownish fluid (water) leaking from vagina 3. Feeling that baby is pushing down, pressure 4. Low, dull backache 5. Cramps that feel like a period 6. Cramps with or without diarrhea If you notice any of the above symptoms, contact our office at [phone] and ask to speak with a nurse. After hours, you can call doctors registry at [phone] OR call [facility] at [phone] and ask to have the doctor chronic condition nurse paged. If you consider this an emergency, dial 9--1 or go to your nearest emergency department. NEED HELP? Are you dealing with a violent or abusive relationship? Are you a victim of rape or sexual assult? Call [facility] ([place]) 24 hour Crisis Hotline: 408.964.5265 or 511-377-3274. MANUAL Your Guide to a Healthy manual is now on-line. Visit [facility].org/HealthyPregna ncyGuide to download your free copy documented in this encounter [facility] 02-12-2025 Telephone encounter Note Patient notified [facility] 02-12-2025 Miscellaneous Notes Patient notified Left message for patient to call office. Ce Doan, KATIE Images from the original note were not included. Erika Lucas APRN.KAREEM to [facility] Ob-Chemical Checker Pool 02/12/25 8:47 AM Please cancel colpo and plan for repeat pap Erika Lucas APRN.Candelaria Fraser MD to Erika Lucas APRN.CNP 02/12/25 8:36 AM I filled it out in [facility] carlos manuel and for HPV negative ASCUS with ASCUS history it says 1 year follow up. So I would say pap and HPV Erika Lucas APRN.NITRATOR OPERATOR to Candelaria Goss MD 02/11/25 11:56 AM Has upcoming colpo with you. ASCUS x2, HPV negative, but LSIL 2016. Should we cancel colpo and plan for repeat pap ? Erika Lucas APRN.NITRATOR OPERATOR documented in this encounter [facility] 02-12-2025 Telephone encounter Note Left message for patient to call office. Ce Doan RN [facility] 02-12-2025 Telephone encounter Note Images from the original note were not included. Erika Lucas APRN.NITRATOR OPERATOR to [facility] Ob-Chemical Checker Pool 02/12/25 8:47 AM Please cancel colpo and plan for repeat pap Erika Lucas APRN.NITRATOR OPERATOR Candelaria Goss MD to Erika Lucas APRN.CNP 02/12/25 8:36 AM I filled it out in [facility] and for HPV negative ASCUS with ASCUS history it says 1 year follow up. So I would say pap and HPV Erika Lucas APRN.NITRATOR OPERATOR to Candelaria Goss MD 02/11/25 11:56 AM Has upcoming colpo with you. ASCUS x2, HPV negative, but LSIL 2016. Should we cancel colpo and plan for repeat pap ? Erika Lucas APRN.NITRATOR OPERATOR [facility] 02-11-2025 Progress note Formatting of t his note might be different from the original. S: Sol Leary is a 29 year old female who presents at 20 weeks gestation for a routine visit. Recently started feeling flutters. Just completed anatomy US. Denies headache, visual changes, chest pain, shortness of breath, vaginal bleeding, leakage of fluid, or dysuria. C/O continued nausea with emesis. Did not start Zofran PO because has not picked up from pharmacy. C/O increased acid reflux that causes nausea. O: See flow sheet Gen: No apparent distress Abd: Gravid, nontender ASSESSMENT/PLAN: 1. Encounter for supervision of high risk in second trimester, antepartum ([facility]) - ICD9: V23.9, ICD10: O09.92 (primary diagnosis) 2. Rubella non-immune status, antepartum ([facility]) 3. Heartburn during 4. History of headache 5. Depression with anxiety 6. Gastroparesis 7. 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 Recently started feeling flutters. Just completed anatomy US. Denies headache, visual changes, chest pain, shortness of breath, vaginal bleeding, leakage of fluid, or dysuria. C/O continued nausea with emesis. Did not start Zofran PO because has not picked up from pharmacy. C/O increased acid reflux that causes nausea. O: See flow sheet Gen: No apparent distress Abd: Gravid, nontender ASSESSMENT/PLAN: 1. Encounter for supervision of high risk in second trimester, antepartum ([facility]) - ICD9: V23.9, ICD10: O09.92 (primary diagnosis) 2. Rubella non-immune status, antepartum ([facility]) 3. Heartburn during 4. History of headache 5. Depression with anxiety 6. Gastroparesis 7. 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 The sequential screen combines ultrasound and blood tests to determine the risk of chromosomal abnormalities, including Down's Syndrome (Trisomy 21) and Trisomy 18, as well as open neural tube defects including spina bifida. Ultrasound examination is performed between 11 weeks and 13 weeks gestational age. Blood tests are drawn after the ultrasound and again later in the between 15 and 21 weeks gestational age. Please let your physician know if you are interested in this testing. It will require an appointment with our radiation technician. This is not an ultrasound performed by a physician in our office during a routine visit. SIGNS AND SYMPTOMS OF LABOR 1. Contractions every 10 minutes or more often 2. Clear, pink, or brownish fluid (water) leaking from vagina 3. Feeling that baby is pushing down, pressure 4. Low, dull backache 5. Cramps that feel like a period 6. Cramps with or without diarrhea If you notice any of the above symptoms, contact our office at [phone] and ask to speak with a nurse. After hours, you can call doctors registry at [phone] OR call [facility] at [phone] and ask to have the doctor chronic condition nurse paged. If you consider this an emergency, dial 9-1-7 or go to your nearest emergency department. NEED HELP? Are you dealing with a violent or abusive relationship? Are you a victim of rape or sexual assult? Call [facility] ([facility] 24 hour Crisis Hotline: 161.267.2231 or 959-842-1731. MANUAL Your Guide to a Healthy manual is now on-line. Visit [facility].org/HealthyPregna ncyGuide to download your free copy documented in this encounter [facility] 01-23-2025 Telephone encounter Note Patient notified and colposcopy scheduled. Nguyen Lovelace RN [facility] 01-23-2025 Miscellaneous Notes Patient notified and colposcopy scheduled. Nguyen Lovelace RN Left message for patient to call office. Nguyen Lovelace RN Please notify patient: Pap ASCUS x2. Needs colpo. Ordered and placed in problem list. Please assist in scheduling. Erika Lucas APRN.CNP documented in this encounter [facility] 01-23-2025 Telephone encounter Note Left message for patient to call office. Nguyen Lovelace RN [facility] 01-23-2025 Telephone encounter Note Please notify patient: Pap ASCUS x2. Needs colpo. Ordered and placed in problem list. Please assist in scheduling. Erika Lucas APRN.CNP [facility] 01-20-2025 Telephone encounter Note 1st risk assessment form submitted 01/20/2025. Ruth Shook RN [facility] 01-20-2025 Miscellaneous Notes 1st risk assessment form submitted 01/20/2025. Ruth Shook RN documented in this encounter [facility] 01-19-2025 Instructions Erika Lucas APRN.NITRATOR OPERATOR - 01/19/2025 10:49 AM EDT Images from the original note were not included. Please select the following link to access the [facility] Your Guide to a Healthy . www.Ccf.org/healthypregnancyguide Psychotherapy Services at [facility] Call Behavioral Health Access Line at [phone] to schedule Individual psychotherapy In-person or virtual Wait time for first evaluation may be 12 or more weeks. Wait list spots may be available. Due to the high volume of patients this option is recommended if you are looking for short term acute symptom coping strategies. 8-291-0-JHDU9AMQL - [place] Maternal Mental Health Hotline If you are in suicidal crisis, please call or text 5-319-698-TALK ( ) or visit the National Suicide Prevention Lifeline website. mchb.pinon health centera.gov If you are in crisis, call 071 or go to your nearest Emergency Department Here are some links for wonderful Providers here in the community and surrounding areas. Do not hesitate to contact their offices, many are offering virtual visits during this time. Psychotherapy Services outside of [facility] Support International Online Provider Directory https://Cyvera.Support Your App/ - can assist in finding providers in your area that might be more extensive then the list below. [facility] [place], [place] [address] [place] [address] [address] [facility] [address] [place], [place] [address] [facility] [address] [place] [address] Juan Carlos Ragland MD [address] [place] [address] [facility] [address] [place] [address], [address] [place] [address] [facility] [address] [place] [address] [facility] Counseling Services [place] / [place] [phone]/ [phone] Rosie Choi [address] [facility] [phone] Aves of Counseling and Mediation [place] / [place] [phone] Behavioral health services of [facility] [address] [place] [address]/ [place] and [place] [phone] Anne Callahan, SAILMAKER, CLC [facility] Workshops, telehealth and at home visits. [phone] Humanistic counseling [place] 20 locations [place], [place], [place], [place], [place], [place], [place], [facility], [place], [place], [place], [place], [place], [place], [place], [facility], [place], [place] ,[facility], [place], [place],[facility], [facility], Ten Sleep, [facility], [facility], [place] www.[facility] [phone] Psychotherapy resources outside of [facility] are listed below [facility] Psychotherapy Web: https://www.Twyxt/ Support International Online Provider Directory https://Moolta/ [facility] https://WunderCar Mobility Solutions/ Partners for Behavioral Health and Wellness Web: https://Squidbid/ Center for Effective Living Web: https://www.effectiveHorizon Wind Energyliving.Support Your App/ LifeStance Web: https://MoboFree.Support Your App/location/s ding/[place]/ [facility] Web: https://www.ReferMeinc.or / [facility] Web: https://Reconnex.org/ Recovery Resources Mental health and substance abuse help Web: https://www.Simple IT & RESOURCES Support International Direct peer support and connection to professional resources Non-Emergency Helpline Phone: / Text: 739.825.3525 Web: https://www..net/ Online Provider Directory: https://Moolta/ Online Support Meetings: https://www..net/get-he lp/gab-gqsarn-khwkftf-meetings/ BLOSSOM Baby and Machinist Supervisor Services Web: https://wwwCloudWork/ MotherToIpracom Expert information on medication use during and Text: [phone] Web: https://Upower/ NATIONAL REGISTRY FOR PSYCHIATRIC MEDICATIONS Currently studying the safety of antidepressants, ADHD medications and atypical antipsychotics taken during TO PARTICIPATE CALL TOLL-FREE: Web: https://womensmentalhealth.org/re search/pregnancyregistry/ Support Groups: [facility]- Follow on facebook Baby Bistro support group led by [facility] department [facility] - Support Group [facility] Fargos.org The POEM support group [phone] Www.poemonline.org Follow on facebook - TANISHA clarkrendon chapter Online support meetings PSI https://www..net/get-he lp/doa-xbiwvy-tdazthc-meetings/ [facility] mommy and me virtual support group 11:30-1pm Support for mothers and new babies and toddlers [place] childbirth education: Childbirth @cc.org or call [phone] CRISIS: CRISIS HOTLINE [phone], 911 or go to the nearest ER. [facility] [phone] / [facility] [phone] https://www.[facility].org Crisis text line text the word HOME to 537691 [facility] [address] [facility] [address] www.Amprius Keyonna [place] clinical counseling [address] [facility] [address] [place] [address] www.OneAssist Consumer Solutions [phone] Holding space psychotherapy Lola Amaya ETHICS INSTRUCTOR VOICE NETWORK ENGINEER-S [address] [facility] www.Risk I/O [phone]/ [place] [phone] They all offer virtual. All work with trauma Support groups Online support meetings PSI https://www..net/get-he lp/uhh-qydepm-cqnxlpj-meetings/ Here are the support groups they offer: Support of parents of 1 to 4 years old children POEM ( Outreach and Encouragement for Moms) offers free support for mothers experiencing depression, anxiety, and other mood and anxiety disorders. Masks are recommended but not required. No pre-registration required. Babies in arms welcome. meetings now take place on the and Sunday of each month Location: [facility] [address] [place] [address] Room 122 (library room) 7-8:00 p.m. When you enter the [facility] parking lot off of [address] the entrance door closest to our meeting room is on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
[2025-06-24 23:26] VITALS: BMI 30.3
[2025-06-24 23:28] VITALS: RESP 18; TEMP 36.8
[2025-06-24 23:38] VITALS: BP 119/77; PULSE 78; PULSE 83; O2SAT 99
[2025-06-25] MEDS: hydrOXYzine PAM 25 MG Capsule PO (02:07)
[2025-06-25 02:08] VITALS: PULSE 90; O2SAT 98
[2025-06-25 02:09] VITALS: BP 104/58; PULSE 80; RESP 18
[2025-06-25 02:11] VITALS: TEMP 36.6
--- NOTE | 2025-06-25 06:48 | OB.TRI.NOTE ---
HPI - General HPI Narrative SLO LEARY, is a 29 F at 39 weeks gestation who presents with contractions. Denies loss of fluid or vaginal bleeding. Positive movements. Maternal Data Information ROSELINE Calculator Estimated Delivery Date Method Current WG Current Estimate 06/27/25 Manual 39w 5d PFSH PFSH Home Medications ?Medication ?Instructions ?Recorded ?Last Taken ?Type calcium carbonate (Tums Extra 600 mg PO PRN 06/24/25 06/24/25 22:40 History Strength Smoothies) vit no.95-ferrous 1 tab PO DAILY 06/24/25 06/24/25 09:00 History fumarate 28 mg-folic acid 800 mcg tablet () Allergy/AdvReac Type Severity Reaction Status Date / Time amoxicillin Allergy Hives Verified 06/24/25 23:31 Social History Smoking Status: Never smoker History Elective abortions Hx Para 1 Spontaneous abortions Hx # Term Pregnancies Ectopic pregnancies Hx # Pregnancies Multiple births # of living children ROS Eyes Eyes: Denies blurry vision Cardiovascular Cardiovascular: Reports none; Denies chest pain at rest, chest pain with activity or dizziness Respiratory/Chest Respiratory/Chest: Denies cough or dyspnea Gastrointestinal Gastrointestinal: Reports none and other; Denies diarrhea or vomiting Genitourinary Genitourinary: Denies dysuria Musculoskeletal Musculoskeletal: Reports none Integumentary Integumentary: Reports none; Denies rash Neurologic Neurologic: Denies dizziness, headache(s) or other visual disturbances Psychiatric Psychiatric: Reports none Physical Exam Const alert and no apparent distress General Appearance: cooperative Orientation / Consciousness: awake Exam Limitations: no limitations HEENT normocephalic Eyes General Eye: normal appearance of both eyes Neck full ROM Chest inspection of chest normal Resp normal respiratory effort and normal air movement Effort and Inspection: symmetric chest movement Auscultation: clear to auscultation bilaterally Cardio regular rate GI soft to palpation, non-tender and non-distended Inspection: and other Back/Spine normal ROM Extremity full ROM, normal capillary refill and no calf tenderness Skin no rashes or lesions noted Neuro oriented x3 and CN's II-XII intact bilaterally Psych mental status grossly normal NST FHR Rate Baby A Baseline: 125 Variability:: Moderate Accelerations:: 15 x 15 Decelerations:: None NST Reactive:: Yes FHR Category:: Category I Uterine Activity:: Irregular Assessment & Plan (1) 39 weeks gestation of : (2) Uterine contractions: (3) History of depression: (4) Anxiety: (5) Incomplete right bundle branch block: COMMENT: EKG completed 03/2025- cleared by cardiology PLAN: Plan CE 3cm- unchanged after extended monitoring Patient does not desire induction NST reactive D/C home with follow up in office or return with contractions that increase in intensity / frequency
== END 2025-06-25 03:10 | disposition home or self-care (01) ==
LOC: WPOUT 23:12 → WP 23:13
PROVIDERS: PCP Nurse Practitioner Family; Referring Provider Advanced Practice Midwife; Visit Provider Advanced Practice Midwife
DX: O47.1 False labor at or after 37 completed weeks of gestation (principal); O99.413 Diseases of the circulatory system complicating pregnancy, third trimester; O99.343 Other mental disorders complicating pregnancy, third trimester; I45.10 Unspecified right bundle-branch block; F41.9 Anxiety disorder, unspecified; Z3A.39 39 weeks gestation of pregnancy
CPT/HCPCS: 59025; 59050; 99221; G0378

== ENCOUNTER 2025-06-29 10:20 | Inpatient (IN) | payer MEDICAID, SELFPAY ==
[2025-06-29] VITALS (17 sets, daily range): BP systolic 104–137; BP diastolic 56–78; PULSE 67–103; RESP 15–20; TEMP 36.6–37.2; O2SAT 94–95; BMI 29.9
[2025-06-29] MEDS: Lactated Ringers 1,000 ML 50 ML IV (10:39)
[2025-06-29 10:51] LABS: Hematocrit 32.2 % (37-47); Hemoglobin 11.0 g/dL (12.0-15.0); Immature Granulocytes Count 0.090 X10^3/uL (0.0-0.0); Mean Corp Hgb Conc 34.2 g/dL (32-36); Mean Corpuscular Volume 91.0 fL (81-99); Mean Platelet Vol. 9.1 fl (6.2-12.0); NRBC Flagged by Analyzer 0 % (0-5); Platelet Count 312 K/mm3 (150-450); RBC Distribution Width CV 12.1 % (11.6-14.6); RBC Distribution Width SD 40.4 fl (35.1-43.9); Red Blood Count 3.54 M/mm3 (4.2-5.4); White Blood Count 15.2 K/mm3 (4.4-11.0)
[2025-06-29] MEDS: Oxytocin 15 Units/NS 250ml 15 UNITS/250 ML IV.SOLN 334 UNITS IV (11:07)
--- NOTE | 2025-06-29 11:18 | PCM.HP.OB ---
HPI - General General Date of Admission: 06/29/25 HPI Narrative SOL LEARY, is a 29 F who presents [ ] Maternal Data Information ROSELINE Calculator Estimated Delivery Date Method Current WG Current Estimate 06/27/25 Manual 40w 2d PFSH PFSH Home Medications ?Medication ?Instructions ?Recorded ?Last Taken ?Type calcium carbonate (Tums Extra 600 mg PO PRN 06/24/25 06/24/25 22:40 History Strength Smoothies) vit no.95-ferrous 1 tab PO DAILY 06/24/25 06/24/25 09:00 History fumarate 28 mg-folic acid 800 mcg tablet () Allergy/AdvReac Type Severity Reaction Status Date / Time amoxicillin Allergy Hives Verified 06/24/25 23:31 Social History Smoking Status: Never smoker History Elective abortions Hx Para 1 Spontaneous abortions Hx # Term Pregnancies Ectopic pregnancies Hx # Pregnancies Multiple births # of living children NST FHR Rate Baby A Baseline: 140 Variability:: Moderate Accelerations:: 15 x 15 Decelerations:: None NST Reactive:: Yes FHR Category:: Category I Uterine Activity:: TOCO reading every 2-3 minutes ROS Eyes Eyes: Denies blurry vision, change in vision or spots in vision ENT HEENT: Denies dizziness or headache(s) Cardiovascular Cardiovascular: Denies abdominal pain, chest pain or dyspnea Respiratory/Chest Respiratory/Chest: Denies cough, dyspnea, shortness of breath at rest or shortness of breath with exertion Gastrointestinal Gastrointestinal: Denies abdominal pain, diarrhea or vomiting Genitourinary Genitourinary: Denies change in urinary stream, difficulty urinating or dysuria Musculoskeletal Musculoskeletal: Reports none Integumentary Integumentary: Denies rash Neurologic Neurologic: Denies dizziness, headache(s), memory loss or weakness Psychiatric Psychiatric: Reports none Vital Signs Vital Signs Vital Signs: 06/29/25 10:27 06/29/25 10:27 06/29/25 10:28 Temperature Temperature Source Pulse Rate 81 85 Respiratory Rate Blood Pressure 132/63 H BP Systolic 132 BP Diastolic 63 Pulse Ox 06/29/25 10:28 06/29/25 10:28 06/29/25 10:28 Temperature Temperature Source Pulse Rate 84 Respiratory Rate Blood Pressure BP Systolic BP Diastolic Pulse Ox 94 94 06/29/25 10:28 06/29/25 10:28 06/29/25 10:28 Temperature 98.3 F Temperature Source Temporal Pulse Rate Respiratory Rate 20 H Blood Pressure BP Systolic BP Diastolic Pulse Ox 06/29/25 11:15 06/29/25 11:15 Temperature Temperature Source Pulse Rate 95 Respiratory Rate Blood Pressure 123/70 H BP Systolic 123 BP Diastolic 70 Pulse Ox Weight Weight: 158 lb 11.725 oz Body Mass Index (BMI) 29.9 Physical Exam Const alert, oriented x3 and no apparent distress General Appearance: cooperative Orientation / Consciousness: awake Exam Limitations: no limitations HEENT normocephalic Head and Scalp: normal to inspection Eyes General Eye: normal appearance of both eyes Neck full ROM and no lymphadenopathy Lymph Lymphatic: no lymphadenopathy noted Chest inspection of chest normal Resp normal respiratory effort, normal air movement and clear to auscultation bilaterally Effort and Inspection: able to speak in complete sentences and symmetric chest movement Cardio regular rate and regular rhythm GI normal to inspection, nondistended, normoactive bowel sounds Manual OB Exam: presentation cephalic Back/Spine normal ROM Extremity full ROM and no calf tenderness Skin no rashes or lesions noted General Skin Exam: no breakdown Neuro oriented x3 and CN's II-XII intact bilaterally Psych mental status grossly normal and thought process normal Labs Labs Labs: Blood Type O POSITIVE Antibody Screen NEGATIVE Hct, (37-47) 32.2 % L Hgb, (12.0-15.0) 11.0 g/dL L Syphilis Total Ab Pending Rhogam given: No Assessment & Plan (1) Spontaneous onset of labor: (2) Incomplete right bundle branch block: COMMENT: EKG completed 03/2025- cleared by cardiology (3) Anxiety: (4) History of depression: (5) 40 weeks gestation of : PLAN: Plan Arrived to unit and was found to be 7cm with bulging bag Anticipate
--- NOTE | 2025-06-29 11:20 | OB.VAGDELI_ITS ---
Assessment & Plan (1) (spontaneous vaginal delivery): (2) Precipitous delivery: (3) 40 weeks gestation of : (4) Spontaneous onset of labor: (5) Care and examination of lactating mother: Maternal Data Information ORSELINE Calculator Estimated Delivery Date Method Current WG Current Estimate 06/27/25 Manual 40w 2d Vaginal Delivery Maternal Presentation Maternal Presentation: Active Labor Vaginal Delivery Information Procedure Performed: Spontaneous Vaginal Delivery (precipitous) Surgeon/Practitioner: Caridad Glynn Date of Procedure: 06/29/25 Pre-Procedure Diagnosis: Term gestation, spontaneous onset of labor Post-Procedure Diagnosis: , Live female infant Type of anesthesia: None Estimated Blood Loss: 300 Time of Delivery: 11:02 Findings Description of procedure: Patient arived to unit and progressed to complete dilation. With good maternal effort, head delivered followed by anterior shoulder and remainder of body without any force, delay, or traction. Vigorous female was delivered atraumatically and placed on maternal abdomen. Pitocin IV started for active management of the third stage of labor. 3 vessel cord clamped and cut by FOB after delay and placed immediately skin to skin with patient. Cord blood collected. Placenta delivered spontaneously and intact. After inspection, vagina and perineum are intact. Vaginal sweep performed. Fundus is firm 2 below U and bleeding is hemostatic. Sponge and sharps counts correct. Patient and infant bonding well at this time. Dr. Goss notified of delivery. Routine post orders placed. Presentation: Vertex Amniotic Membrane Rupture Type: Artificial Amniotic Fluid Description: Clear Placental Delivery Description: Spontaneous Placenta Disposition: [facility] Specimen collected: No Cord Vessel Description: 3 Vessels Cord Entanglement: None Nuchal Cord Compression: Without compression Infant A Gender: Female (1 minute): 8 (5 minute): 9 Delayed Cord Clamping: Yes Entertainment Centre Manager philanthropy officer: No Post Vaginal Deli Medications given after delivery: IV Pitocin Episiotomy Description: None Laceration: None Complication Complications: No
[2025-06-29 11:29] LABS: Syphilis Antibodies Nonreactive (Nonreactive)
[2025-06-29] MEDS: Oxytocin 15 Units/NS 250ml 15 UNITS/250 ML IV.SOLN 83 UNITS IV (11:40)
[2025-06-30 03:39] VITALS: BP 120/60; PULSE 86; PULSE 97; RESP 16; TEMP 36.8; O2SAT 95
[2025-06-30 08:00] VITALS: BP 107/59; PULSE 90; RESP 16; TEMP 36.5; O2SAT 95
[2025-06-30 08:34] VITALS: PULSE 98; O2SAT 95
[2025-06-30 08:36] VITALS: PULSE 88; O2SAT 94
[2025-06-30 08:37] VITALS: BP 107/59; PULSE 90
--- NOTE | 2025-06-30 08:44 | PCM.PN.OB ---
Subjective Subjective Doing well per patient and nursing staff. Ambulating and taking PO without difficulty. Voiding and passing flatus. Pain controlled. , services for assistance. Denies headache, visual changes, chest pain, shortness of breath, leg pain or increased bleeding. Lochia normal. Objective Data Objective Data Vital Signs: Vital Signs Temp Pulse Resp BP Pulse Ox O2 Del Method 98.2 F 90 16 107/59 L 94 Room Air 06/30/25 03:39 06/30/25 08:37 06/30/25 03:39 06/30/25 08:37 06/30/25 08:36 06/30/25 03:39 Oxygen Delivery Method Room Air Weight: 158 lb 11.725 oz Body Mass Index (BMI) 29.9 Intake & Output: Intake and Output for Last 24 Hours 06/28/25 06/29/25 06/30/25 23:59 23:59 23:59 Intake Total 469.70 / 469.70 Output Total 950 / 950 Balance -480.30 / -480.30 Lab / Micro Data 06/29/25 10:31 Labs: Laboratory Results - last 24 hr 06/29/25 10:31: WBC 15.2 H, RBC 3.54 L, Hgb 11.0 L, Hct 32.2 L, MCV 91.0, MCH 31.1, MCHC 34.2, RDW Std Deviation 40.4, RDW Coeff of Patric 12.1, Plt Count 312, MPV 9.1, Immature Gran % (Auto) 0.600, Neut % (Auto) 79.5 H, Lymph % (Auto) 11.9 L, Garza % (Auto) 7.2, Eos % (Auto) 0.5, Baso % (Auto) 0.3, Absolute Neuts (auto) 12.0 H, Absolute Lymphs (auto) 1.81, Nucleated RBC % 0, Syphilis Total Ab Nonreactive, Blood Type O POSITIVE, Antibody Screen NEGATIVE ROS Constitutional Constitutional: Reports systems reviewed and no addt'l complaints, except as documented; Denies headache(s) Eyes Eyes: Denies acute decrease in peripheral vision, blurry vision or change in vision ENT HEENT: Reports systems reviewed and no addt'l complaints, except as documented Cardiovascular Cardiovascular: Denies chest pain or dizziness Respiratory/Chest Respiratory/Chest: Denies cough, dyspnea, dyspnea on exertion, shortness of breath at rest or shortness of breath with exertion Gastrointestinal Gastrointestinal: Denies abdominal pain, diarrhea, nausea or vomiting Genitourinary Genitourinary: Denies abdominal discomfort Musculoskeletal Musculoskeletal: Denies limited range of motion Integumentary Integumentary: Reports systems reviewed and no addt'l complaints, except as documented Neurologic Neurologic: Reports systems reviewed and no addt'l complaints, except as documented Psychiatric Psychiatric: Reports systems reviewed and no addt'l complaints, except as documented Endocrine Endocrinology: Reports systems reviewed and no addt'l complaints, except as documented Hematologic/Lymphatic Hematologic/Lymphatic: Reports systems reviewed and no addt'l complaints, except as documented Allergic/Immunologic Allergic/Immunologic: Reports systems reviewed and no addt'l complaints, except as documented Physical Exam Const alert and oriented x3 General Appearance: cooperative Orientation / Consciousness: awake, oriented to person, oriented to place and oriented to time Exam Limitations: no limitations HEENT normocephalic Head and Scalp: normal to inspection, normocephalic and atraumatic Face and Sinus: normal facial exam Eyes General Eye: normal appearance of both eyes Neck full ROM Chest Chest: symmetrical chest wall rise Resp normal respiratory effort and normal air movement Auscultation: clear to auscultation bilaterally Cardio regular rate, regular rhythm, S1 normal heart sound, S2 normal heart sound, no murmurs, no rub, no gallops and no clicks GI normal to inspection, nondistended, normoactive bowel sounds and non-tender GI Narrative: Fundus firm 2 below U appearance of the vagina normal Narrative: Normal lochia rubra Bladder / Kidney Exam: no CVA tenderness Back/Spine normal ROM Extremity normal to inspection and full ROM Skin no rashes or lesions noted Neuro oriented x3, CN's II-XII intact bilaterally and moves all extremities Sensorium / Orientation: awake, alert and oriented to person Motor Exam: clonus absent Deep Tendon Reflexes: Rt Patellar (L4): 2+ and Lt Patellar (L4): 2+ Assessment & Plan (1) Care and examination of lactating mother: (2) Precipitous delivery: (3) (spontaneous vaginal delivery): PLAN: Plan 1) Routine care, PPD #1 2) Vitals signs stable 3) Pain controlled 4) , services PRN 5) D/C home 6) Follow up in 2 weeks and 6 weeks
--- NOTE | 2025-06-30 08:45 | DS.PCM_ITS ---
Providers Date of Admission: 06/29/25 Primary Care Physician: Maria Ines Knox NP-C Reason For Visit: VAGINAL DELIVERY Diagnosis Discharge Diagnosis (1) (spontaneous vaginal delivery): Status: Acute Code(s): O80 - Encounter for full-term uncomplicated delivery (2) Precipitous delivery: Status: Acute Code(s): O62.3 - Precipitate labor (3) 40 weeks gestation of : Status: Acute Code(s): Z3A.40 - 40 weeks gestation of (4) Spontaneous onset of labor: Status: Acute (5) Care and examination of lactating mother: Status: Acute Code(s): Z39.1 - Encounter for care and examination of lactating mother Medications at Discharge Home Medications vit no.95-ferrous fumarate 28 mg-folic acid 800 mcg tablet () 1 tab PO DAILY 06/24/25 acetaminophen 500 mg tablet 1,000 mg (2 x 500 mg) PO Q6H PRN PRN Pain 1-10 Or Fever #0 tabs 06/30/25 naproxen 500 mg tablet 500 mg PO Q8H PRN PRN Pain Score 1-10 #0 tabs 06/30/25 Hospital Course Summary of Care Provided Minutes Spent on Discharge: 15 Weight / BMI Weight Weight: 158 lb 11.725 oz Body Mass Index (BMI) 29.9 PRE- weight 120 lb PRE- Body Mass Index 22.6 (BMI) ABG / Lab / Microbiology Data 06/29/25 10:31 Laboratory: Laboratory Results - last 24 hr 06/29/25 10:31: WBC 15.2 H, RBC 3.54 L, Hgb 11.0 L, Hct 32.2 L, MCV 91.0, MCH 31.1, MCHC 34.2, RDW Std Deviation 40.4, RDW Coeff of Patric 12.1, Plt Count 312, MPV 9.1, Immature Gran % (Auto) 0.600, Neut % (Auto) 79.5 H, Lymph % (Auto) 11.9 L, [place] % (Auto) 7.2, Eos % (Auto) 0.5, Baso % (Auto) 0.3, Absolute Neuts (auto) 12.0 H, Absolute Lymphs (auto) 1.81, Nucleated RBC % 0, Syphilis Total Ab Nonreactive, Blood Type O POSITIVE, Antibody Screen NEGATIVE D/C Instructions Discharge Activity: Return to Normal Activity, May Drive, May Shower and May Take a Tub Bath May resume sexual activity in: 6 weeks Weight Bearing Status: Full weight bearing Call your doctor if you observe: Fever of 101 or Higher, Inability to urinate, Using more than 1 pad per hour, Shortness of breath, Chest pain, Increased palpitations (irregular heartbeat), Calf discomfort and Uncontrolled pain DC O2, CPAP, BIPAP Needs Home O2 Discharge instructions: No Please Follow Up With: Chrissie Willoughby CNM When: 2 week virtual visit and 6 week visit Meaningful Use Info Meaningful Use Meaningful Use Diagnoses (Choose all that apply): None applicable Discharge Plan Admission Admit Date/Time: 06/29/25 10:20 Primary Reason for Your Visit: Vaginal Delivery Attending Provider: Caridad Glynn Primary Care Provider: Maria Ines Knox NP Discharge Orders/Prescriptions Prescriptions: New acetaminophen 500 mg Tablet 1,000 mg PO Q6H PRN PRN (Reason: Pain 1-10 Or Fever) Qty: 0 0RF naproxen 500 mg Tablet 500 mg PO Q8H PRN PRN (Reason: Pain Score 1-10) Qty: 0 0RF Continued PNV no.95-ferrous fumarate-FA [] 28 mg iron- 800 mcg tablet 1 tab PO DAILY Discontinued Tums Extra Strength Smoothies 300 mg (750 mg) tablet,chewable 600 mg PO PRN Referrals / Follow Up: Caridad Glynn CNM [Med Staff - Adv Practice Prof, Obstetrics] Marai Ines Knox NP, DIRECTOR OF KNOWLEDGE MANAGEMENT-C [Primary Care Provider, Medical] Disposition Disposition (needs filled in before D/C Order can be placed): Home, Self Care
[2025-06-30 11:30] VITALS: BP 116/65; PULSE 90; RESP 16; TEMP 36.6; O2SAT 95
--- NOTE | 2025-07-01 11:03 | CASEMGMT ---
Social Work Assessment Labor and Delivery Unit Patient Address: [address] [place] [address] Phone number: [phone] Date of Referral: 06/29/25 Time of Referral:? 1621 Referred By: Caridad Glynn Date of Intervention: ??06/30/25 Time of Intervention:? 1420 Reason for Referral:?hx of anxiety and depression Sw Completed chart review and acknowledges social work consult. Sw presented to bedside and introduced self to mother of baby, JENNIFER- [place] and father of baby, GLORIA- [place]. Sw explained reason for sw involvement and completed psychosocial assessment.? History obtained from: medical records, MOB and FOB Household composition: Currently residing in the home is MOB, FOB, JENNIFER's two older children: Alcides (14), and Serdeisyty (8) and MOB's mother. [place] baby to be included in the home when ready for discharge. JENNIFER denies any housing concerns stating their home is safe and secure. 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 No concerns reported of domestic violence or intimate partner violence. [place] baby is first baby for parents together, and first baby for GLORIA.? ? Medical History: ?JENNIFER is 29 year old female who is 3, para 2- now 3 following labor and delivery of . JENNIFER received routine care during with [facility]. JENNIFER presented to hospital and precipitously delivered baby via vaginal delivery on 06/29/25 at 40 weeks gestation. Baby girl, named Shaylee, was born weighing 7lbs 5oz and had agpars of 8 and 9 at one and five minutes of life, respectfully. JENNIFER is breast feeding and states that baby will be followed by Dr. Arroyo for pediatric care and follow up. Educational Status:?Both parents graduated from high school and GLORIA obtained his Bachelor's degree. NO problems with reading, learning or comprehension reported.? Financial Status: Both parents are gainfully employed outside of the home. 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 Supplies:?All necessary baby supplies obtained, including: car seat, safe sleep space, clothes, diapers and wipes. ? Childcare/Caregiver(s):?JENNIFER reports that she will be the primary caregiver to baby, along with her mom when she is at work. Transportation:?? both parents have their drivers license along with reliable means of transportation, no barriers at this time. Programs/Agencies Involved: ??JENNIFER is connected to [facility] for insurance ([employer]), she is not receiving other financial supports at this time. ? Children Services/Legal Issues:??Parents deny prior involvement with children services, no concerns warranting referral to be made at this time. ? Behavioral Health Issues: ??Mental Health History: GLORIA denies mental health history. JENNIFER states that she does have history of anxiety and depression. When discussing this, mom states that this was typically when she was younger, but denies requiring medication to help her manage her symptoms. MOB states that she felt fine during her . MOB denies ever experiencing symptoms following her other pregnancies. ??? Substance Use History:?Parents deny substance use prior to and during . ? Family History:??Parents deny family history of addiction or significant mental health history. ??? Drug Screens: No drug screens observed while completing chart review. ?? Family/Social Stressors:? Parents deny any issues, stressors or concerns. Support Systems: JENNIFER states that her mom is her biggest support person Depression/Shaken Baby/Safe Sleeping:? Sw educated MOB and FOB on signs and symptoms of baby blues and mood and anxiety disorders to be mindful of during this period. MOB stated that due to MOB?s mental health history she is more at risk to experiencing these symptoms. MOB states that because she has never struggled in the past with these problems, she is not worried about it this time either. Hossein stated that every journey is different, and even though MOB probably will not struggle with her mental health, it is always important to be aware of the signs. Sw educated GLORIA as well, due to this being his first baby. Sw expressed importance of safe sleep inside and outside of the bedroom. Sw educated MOB on always placing baby in bedside bassinet and not sleeping with baby in bed with her. Sw explained that baby's bassinet should be free of any blankets, pillows or stuffed animals. And baby should be sleeping in a onsie and a sleep sack/ swaddle sack for sleep. MOB expressed understanding. Sw discouraged sleeping with baby on a couch or in a reclining chair explaining that sleep accidents also happen in those areas as well. Sw educated MOB on shaken baby prevention. MOB expressed understanding. ASSESSMENT:? MOB and baby admitted following labor and delivery of . MOB with mental health history of anxiety and depression. MOB denies experiencing symptoms in the past, and states that since delivering baby she has felt like herself, denies feeling down, sad, tearful, anxious or depressed. While talking with parents, MOB was laying on bed and holding baby. MOB changed baby?s diaper and held her lovingly and appropriately afterwards. FOB sat on couch and gathered necessary baby items MOB needed to change diaper. FOB states that he is excited to be a dad, but is appropriately nervous about all first time parent things. FOB states that he believes he would be able to recognize if MOB is struggling with her mental health, and would know how to help and support her. PLAN:? No other services requested or indicated. MOB and baby to be discharged when medically ready. Parents were provided literature regarding: signs and symptoms of baby blues and mood and anxiety disorders, Help Me Grow, shaken baby prevention, ABCs of safe sleep and a list of county resources that are available for them should any needs present themselves. Lars Clay, WIRE BOUND BOX MACHINE HELPER, [employer]
== END 2025-06-30 13:30 | disposition home or self-care (01) | DRG 560 ==
PROVIDERS: Obstetrics & Gynecology; Admitting Provider Advanced Practice Midwife; PCP Nurse Practitioner Family; Referring Provider Advanced Practice Midwife; Visit Provider Advanced Practice Midwife
DX: O62.3 Precipitate labor (principal); Z37.0 Single live birth; O99.42 Diseases of the circulatory system complicating childbirth; I45.10 Unspecified right bundle-branch block; Z3A.40 40 weeks gestation of pregnancy; Z86.59 Personal history of other mental and behavioral disorders
CPT/HCPCS: 59050; 85025; 86780; 86850; 86900; 86901; 99221; G0378